=== PATIENT | male | born 1955 | race Caucasian/White ===

== ENCOUNTER 2017-05-03 21:59 | Inpatient (IN) | payer MEDICAID, SELFPAY ==
--- NOTE | 2017-05-03 22:12 | ED PDOC ---
Arrival/HPI - General Time Seen by Provider: 05/03/17 22:04 Historian: Patient - History of Present Illness Narrative History of Present Illness (Text): 05/03/17 22:05 Sisi Lee is a 61 year old male who presents to the Emergency department brought in by EMS complaining of sudden onset of mid-sternal chest pain 30 minutes prior to arrival. Patient was given Aspirin 324 mg en route by EMS. Patient denies any nausea, vomiting, diarrhea, urinary symptoms, back pain , neck pain, headache, dizziness, or any other complaints. Time/Duration: 1/2 hour Symptom Onset: Sudden Symptom Course: Unchanged Activities at Onset: Light Context: Home Past Medical History - Provider Review Nursing Documentation Reviewed: Yes Family/Social History - Physician Review Nursing Documentation Reviewed: Yes Family/Social History: Unknown Family HX Allergies/Home Meds Allergies/Adverse Reactions: Allergies No Known Allergies Allergy (Verified 05/03/17 22:20) Home Medications: Home Meds Medication Instructions Recorded Confirmed Atorvastatin [Lipitor] 10 mg PO DAILY 05/03/17 05/03/17 Meloxicam [Mobic] 15 mg PO DAILY 05/03/17 05/03/17 Sotalol HCl [Sotalol HCl] 40 mg PO DAILY 05/03/17 05/03/17 Review of Systems - Physician Review All systems were reviewed & negative as marked: Yes - Review of Systems Constitutional: Normal. absent: Fevers Eyes: Normal ENT: Normal Respiratory: absent: Cough Cardiovascular: Chest Pain Gastrointestinal: Normal. absent: Abdominal Pain, Diarrhea, Nausea, Vomiting Genitourinary Male: Normal. absent: Dysuria, Frequency, Hematuria, Urinary Output Changes Musculoskeletal: Normal. absent: Back Pain, Neck Pain Skin: Normal. absent: Rash Neurological: Normal. absent: Headache, Dizziness Hemo/Lymphatic: Normal Psychiatric: Normal Physical Exam Vital Signs Reviewed: Yes Vital Signs Pulse Resp BP Pulse Ox 05/04/17 00:32 65 16 118/67 100 05/04/17 00:05 64 16 104/66 100 05/03/17 23:30 59 L 16 115/76 100 05/03/17 23:15 59 L 16 114/68 100 05/03/17 23:00 51 L 16 116/68 100 05/03/17 22:45 52 L 16 122/43 L 99 05/03/17 22:29 51 L 16 122/73 99 05/03/17 22:15 48 L 16 111/71 99 05/03/17 22:00 54 L 16 103/65 99 Temperature: Afebrile Blood Pressure: Normal Pulse: Regular Respiratory Rate: Normal Appearance: Positive for: Well-Appearing, Non-Toxic, Comfortable Pain Distress: None Mental Status: Positive for: Alert and Oriented X 3 - Systems Exam Head: Present: Atraumatic, Normocephalic Pupils: Present: PERRL Extroacular Muscles: Present: EOMI Conjunctiva: Present: Normal Mouth: Present: Moist Mucous Membranes Neck: Present: Normal Range of Motion Respiratory/Chest: Present: Clear to Auscultation, Good Air Exchange. No: Respiratory Distress, Accessory Muscle Use Cardiovascular: Present: Regular Rate and Rhythm, Normal S1, S2. No: Murmurs Abdomen: Present: Normal Bowel Sounds. No: Tenderness, Distention, Peritoneal Signs Back: Present: Normal Inspection Upper Extremity: Present: Normal Inspection. No: Cyanosis, Edema Lower Extremity: Present: Normal Inspection. No: Edema Neurological: Present: GCS=15, CN II-XII Intact, Speech Normal Skin: Present: Warm, Dry, Normal Color. 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 Differential Diagnosis included but are not limited to: ACS Plan: -- EKG -- CXR -- Labs, cardiac enzymes -- Heparin -- Plavix -- Nitroglycerin -- Reassess and disposition Progress Notes: 05/03/17 22:05 Pt seen on arrival to ER. EKG reviewed, sinus bradycardia at 47 bpm[address] Non- specific ST/T wave changes. Questionable early inferior wall [place]. Sent to Dr. Do, cardiac cath air route traffic controller exploitation analyst, for further review 05/03/17 22:[address] Do, who reviewed EKG, states no STEMI on EKG. 05/03/17 22:16 Reviewed right-sided EKG, sinus bradycardia at 47 bpm. Questionable inferior wall [place]. No evidence of right ventricular infarct. 05/03/17 22:[address] Gray, habitat conservation planner, who is aware and agrees with plan. Pt will be admitted to the ICU for ACS under the hospitalist service. 05/03/17 23:05 PROCEDURE: VENIPUNCTURE Performed by the emergency provider. Consent: Informed consent, after discussion of the risks, benefits, and alternatives to the procedure, was obtained verbally from the patient prior to procedure. Timeout: A timeout to verify the correct patient, procedure, and site was performed immediately prior to the procedure. Indication: Lack of adequate venous access. Skin Preparation: Hand hygiene performed prior to venous catheter insertion. The area was cleansed and prepped with alcohol swabs. Location: Right EJ Technique: A 20 gauge catheter was placed into the RIGHT EJ. Successful placement: YES . Good blood return, flushes well. Post-procedure: Patient tolerated the procedure well with no immediate complications. 05/03/17 23:10 Reviewed radiology, CXR shows no acute processes. 05/04/17 00:31 pt improved hr and bp better will get ekg Repeat EKG reviewed, NSR at [address] segment elevations in leads 2, 3, and AVF. Code Heart called. 05/04/17 06:16 - Critical Care Critical Care Minutes: 30 minutes Narrative Critical Care (Text): Management of ACS - Lab Interpretations Lab Results: 05/03/17 22:08 05/03/17 22:08 Lab Results 05/03/17 22:08: Sodium 138, Potassium 5.1 H, Chloride 101, Carbon Dioxide 28, Anion Gap 14, BUN 18, Creatinine 1.1, Est GFR ( Amer) > 60, Est GFR (Non- Af Amer) > 60, Random Glucose 112 H, Calcium 9.5, Magnesium 1.9, Total Bilirubin 1.0, AST 44, ALT 53, Alkaline Phosphatase 64, Lactate Dehydrogenase 706 H, Total Creatine Kinase 97, Troponin I < 0.01, Total Protein 6.9, Albumin 4.2, Globulin 2.6, Albumin/Globulin Ratio 1.6 05/03/17 22:08: PT 11.4, INR 1.06, APTT 26.6 05/03/17 22:08: WBC 11.2 H, RBC 6.03, Hgb 18.3 H*, Hct 52.4 H, MCV 86.9, MCH 30.3, MCHC 34.9, RDW 13.8, Plt Count 215, MPV 9.8, Gran % 24.7 L, Lymph % (Auto ) 59.5 H, Dawson % (Auto) 10.7 H, Eos % (Auto) 4.4, Baso % (Auto) 0.7, Gran # 2.76 , Lymph # 6.6 H, Dawson # 1.2 H, Eos # 0.5, Baso # 0.08 05/03/17 22:06: POC Glucose (mg/dL) 119 H I have reviewed the lab results: Yes - RAD Interpretation Radiology Orders: 05/03/17 22:23 CHEST PORTABLE [RAD] Stat Polygraph Examiner: ED Physician - EKG Interpretation Interpreted by ED Physician: Yes Type: 12 lead EKG - Medication Orders Current Medication Orders: Acetaminophen (Tylenol 325mg Tab) 650 mg PO Q4 PRN PRN Reason: Fever >100.4 F Albuterol/Ipratropium (Duoneb 3 Mg/0.5 Mg (3 Ml) Ud) 3 ml IH Q2H PRN PRN Reason: Shortness of Breath Albuterol/Ipratropium (Duoneb 3 Mg/0.5 Mg (3 Ml) Ud) 3 ml IH [id number] ANILA Atorvastatin Calcium (Lipitor) 40 mg PO DIN ANILA Docusate Sodium (Colace) 100 mg PO BID PRN PRN Reason: Constipation Sodium Chloride (Sodium Chloride 0.9%) 1,000 mls @ 100 mls/hr IV .Q10H ANILA Stop: 05/04/17 21:59 Last Admin: 05/04/17 03:00 Dose: 100 mls/hr Ondansetron HCl (Zofran Inj) 4 mg IVP Q8H PRN PRN Reason: Nausea/Vomiting Discontinued Medications Atropine Sulfate (Atropine) Confirm Administered Dose 1 mg .ROUTE .STK-MED ONE Stop: 05/04/17 01:06 Last Admin: 05/04/17 01:31 Dose: 1 mg Comments: IV per Dr. Do. 0.5 mg @ 0131 and 0.5 mg @ 0132. Atropine Sulfate (Atropine) Confirm Administered Dose 1 mg .ROUTE .STK-MED ONE Stop: 05/04/17 01:37 Last Admin: 05/04/17 02:04 Dose: Clopidogrel Bisulfate (Plavix) 300 mg PO STAT STA Stop: 05/03/17 22:24 Last Admin: 05/03/17 22:38 Dose: 300 mg Fentanyl (Fentanyl) Confirm Administered Dose 100 mcg .ROUTE .STK-MED ONE Stop: 05/04/17 01:08 Last Admin: 05/04/17 01:15 Dose: 100 mcg Comments: IV. 50 mcg @ [address] Do. 50 mcg @ [address] Do Heparin Sodium (Porcine) (Heparin) 4,000 units IV ONCE ONE PRN Reason: Protocol Stop: 05/03/17 22:25 Last Admin: 05/03/17 23:09 Dose: 4,000 units Heparin Sodium (Porcine) (Heparin) Confirm Administered Dose 10,000 units .ROUTE .STK-MED ONE Stop: 05/04/17 01:06 Last Admin: 05/04/17 01:27 Dose: 2,000 units Comments: IV per Dr. Do Heparin Sodium/Dextrose (Heparin 25,000 Units/250ml In D5w) 25,000 units in 250 mls @ 8.437 mls/hr IV .Q24H ANILA; 12 UNITS/KG/HR PRN Reason: Protocol Last Admin: 05/03/17 23:10 Dose: 8.437 mls/hr Nitroglycerin/Dextrose (Nitroglycerin 50 Mg/250 Ml D5w) 50 mg in 250 mls @ 1.5 mls/hr IV .Q24H PRN; Protocol; 5 MCG/MIN PRN Reason: Systolic Blood Pressure Last Admin: 05/03/17 23:00 Dose: 1.5 mls/hr Nitroglycerin/Dextrose (Nitroglycerin 50 Mg/250 Ml D5w) Confirm Administered Dose 50 mg in 250 mls @ ud IV .STK-MED ONE Stop: 05/04/17 01:06 Last Admin: 05/04/17 02:06 Dose: Heparin Sodium (Porcine) (Heparin 1000 Units/500 Ml Ns) Confirm Administered Dose 1,500 mls @ ud IV .STK-MED ONE Stop: 05/04/17 01:07 Iodixanol (Visipaque 320 Mg/Ml 100 Ml) Confirm Administered Dose 100 ml IV .STK- MED ONE Stop: 05/04/17 01:06 Last Admin: 05/04/17 02:07 Dose: Iodixanol (Visipaque 320 Mg/Ml 200 Ml) Confirm Administered Dose 200 ml IV .STK- MED ONE Stop: 05/04/17 01:06 Last Admin: 05/04/17 01:18 Dose: 200 ml Comments: During cath Iohexol (Omnipaque 350mg/Ml 50 Ml) Confirm Administered Dose 50 ml .ROUTE .STK- MED ONE Stop: 05/04/17 01:06 Last Admin: 05/04/17 01:18 Dose: 50 ml Comments: During cath Lidocaine HCl (Lidocaine 2% 20ml Vial) Confirm Administered Dose 20 ml .ROUTE .STK-MED ONE Stop: 05/04/17 01:08 Last Admin: 05/04/17 01:18 Dose: 8 ml Comments: SC into right groin by Dr. Do Midazolam HCl (Versed Inj) Confirm Administered Dose 2 mg .ROUTE .STK-MED ONE Stop: 05/04/17 01:07 Last Admin: 05/04/17 01:15 Dose: 2 mg Comments: IV by Dr. Do Midazolam HCl (Versed Inj) Confirm Administered Dose 2 mg .ROUTE .STK-MED ONE Stop: 05/04/17 01:38 Last Admin: 05/04/17 01:37 Dose: 2 mg Comments: IV per Dr. Do Nitroglycerin (Nitrostat Sl Tab) 0.4 mg SL Q5M PRN PRN Reason: Chest Pain Stop: 05/04/17 01:41 Phenylephrine HCl (Phenylephrine Inj) Confirm Administered Dose 10 mg .ROUTE .STK-MED ONE Stop: 05/04/17 01:07 Last Admin: 05/04/17 02:07 Dose: - Scribe Statement The provider has reviewed the documentation as recorded by the Scribmarysol Phillips All medical record entries made by the Reneibmarysol were at my direction and personally dictated by me. I have reviewed the chart and agree that the record accurately reflects my personal performance of the history, physical exam, medical decision making, and the department course for this patient. I have also personally directed, reviewed, and agree with the discharge instructions and disposition. Disposition/Present on Arrival - Present on Arrival Any Indicators Present on Arrival: No - Disposition Have Diagnosis and Disposition been Completed?: Yes Diagnosis: Myocardial infarction of inferior wall Disposition: HOSPITALIZED Disposition Time: 00:30 Condition: CRITICAL
[2017-05-03] MEDS ORDERED: Nitroglycerin 50mg in D5W 50 MG/250 ML BOTTLE IV PRN (22:23)
[2017-05-03] MEDS ORDERED: Heparin 25,000units in D5W 25,000 UNITS/250 ML BAG IV SCH (22:30)
[2017-05-03 22:32] LABS: BASO # 0.08 K/mm3 (0.0-2.0); BASO % 0.7 % (0.0-3.0); EOS # 0.5 (0.0-0.7); EOS % 4.4 % (1.5-5.0); GRAN # 2.76 (1.4-6.5); GRAN % 24.7 % (50.0-68.0); HEMATOCRIT 52.4 % (42.0-52.0); LYMPH # 6.6 (1.2-3.4); LYMPH % 59.5 % (22.0-35.0); MEAN CELL VOLUME 86.9 fl (80.0-105.0); MEAN CORPUSCULAR HEMOGLOBIN 30.3 pg (25.0-35.0); MEAN CORPUSCULAR HGB CONC 34.9 g/dl (31.0-37.0); MEAN PLATELET VOLUME 9.8 fl (7.0-11.0); MONO # 1.2 (0.1-0.6); MONO % 10.7 % (1.0-6.0); RED CELL DISTRIBUTION WIDTH 13.8 % (11.5-14.5); WHITE BLOOD COUNT 11.2 10^3/ul (4.5-11.0)
[2017-05-03 22:43] LABS: INR 1.06 (0.93-1.08); PARTIAL THROMBOPLASTIN TIME 26.6 Seconds (23.7-30.8)
[2017-05-03 22:44] LABS: ALB/GLOB RATIO 1.6 (1.1-1.8); ALKALINE PHOSPHATASE 64 U/L (38-126); ALT/SGPT 53 U/L (7-56); AST/SGOT 44 U/L (17-59); BLOOD UREA NITROGEN 18 mg/dL (7-21); CALCIUM 9.5 mg/dL (8.4-10.5); CARBON DIOXIDE 28 mmol/L (21-33); CHLORIDE 101 mmol/L (98-107); GFR AFRICAN-AMERICAN > 60; GLUCOSE,RANDOM 112 mg/dL (70-110); MAGNESIUM 1.9 mg/dL (1.7-2.2); SODIUM 138 mmol/L (132-148); TOTAL PROTEIN 6.9 g/dL (5.8-8.3)
[2017-05-03 22:45] LABS: POTASSIUM 5.1 mmol/L (3.6-5.0)
[2017-05-03 22:55] LABS: TROPONIN I < 0.01 ng/mL
--- NOTE | 2017-05-04 00:56 | CP.PCM.PN ---
Subjective - Date & Time of Evaluation Date of Evaluation: 05/04/17 Time of Evaluation: 00:56 - Subjective Subjective: Responded to 'Code heart' announcement promptly. Medical record was reviewed. Stayed with patient and accompanied him to pathology laboratory technologist, stayed in pathology laboratory technologist until PTCA of proximal circumflex and 1 st OM completed. TIME SPENT 65 Minutes. Objective - Vital Signs/Intake and Output Vital Signs (last 24 hours): Temp Pulse Resp BP Pulse Ox 65 16 118/67 100 05/04/17 00:32 05/04/17 00:32 05/04/17 00:32 05/04/17 00:32 - Medications Medications: Current Medications Heparin Sodium/Dextrose (Heparin 25,000 Units/250ml In D5w) 25,000 units in 250 mls @ 8.437 mls/hr IV .Q24H ANILA; 12 UNITS/KG/HR PRN Reason: Protocol Last Admin: 05/03/17 23:10 Dose: 8.437 mls/hr Nitroglycerin/Dextrose (Nitroglycerin 50 Mg/250 Ml D5w) 50 mg in 250 mls @ 1.5 mls/hr IV .Q24H PRN; Protocol; 5 MCG/MIN PRN Reason: Systolic Blood Pressure Last Admin: 05/03/17 23:00 Dose: 1.5 mls/hr - Labs Labs: PT 11.4 Seconds (9.9-11.8) 05/03/17 22:08 INR 1.06 (0.93-1.08) 05/03/17 22:08 APTT 26.6 Seconds (23.7-30.8) 05/03/17 22:08
[2017-05-04] MEDS ORDERED: Nitroglycerin 50mg in D5W 0 MG/0 ML BOTTLE IV ONE (01:05)
[2017-05-04] MEDS ORDERED: Iodixanol 320 MG/ML 100 ML BOTTLE IV ONE (01:05)
[2017-05-04] MEDS ORDERED: Iohexol 350mgl/ml 50 ML ONE (01:05)
[2017-05-04] MEDS ORDERED: Iodixanol 320 MG/ML 200 ML BOTTLE IV ONE (01:05)
[2017-05-04] MEDS ORDERED: Phenylephrine 10 mg/ml Inj ONE (01:06)
[2017-05-04] MEDS ORDERED: Midazolam 2 MG/2 ML VIAL ONE ×2 (01:06→01:37)
[2017-05-04] MEDS ORDERED: Lidocaine 2% Inj (20ml) ONE (01:07)
[2017-05-04] MEDS ORDERED: Sodium Chloride 0.9% 1,000 ML IV SCH (02:00)
--- NOTE | 2017-05-04 02:08 | CP.PCM.HP ---
<Madgy Alvarado - Last Filed: 05/04/17 01:52> History of Present Illness - History of Present Illness History of Present Illness: ICU H&P for Dr. Gray CC: Midsternal chest pain x 3 hours HPI: This is a 61 yo Sami-speaking M with PMH HTN, AFib, HLD, and unspecified lung disorder 2/2 active tobacco use (1ppd > 30yrs, currently ~1/2 ppd for 6 months) who [place] [facility] of midsternal sharp chest pain persisting for > 3 hours prior to arrival. Through crop duster, patient reports some shortness of breath, but does not describe as significantly off his baseline. Also reports nausea without emesis, 2x episodes of diarrhea today, chills, and general feeling of malaise. Denies syncope/near-syncope, emesis, hematemesis, cough, focal weakness, dysuria, or fevers. Denies any similar chest pain in the past. Does not follow a bakery decorator. Reports family hx of stroke (both parents), but denies any FHx of RI. Reports compliant with home medications. Prior to episode, only baseline sx were some shortness of breath with exertion, and baseline shortness of breath for which he used a rescue inhaler, a nebulizer, and Spriva. All other ROS in 12-point system review were negative. In the ED, initial EKG was notable for mild ST-elevation in leads II, III, and aVF, and ST-depressions in leads I and aVL. Initial trop was negative. He was started on a heparin drip and nitro drip, but reported minimal alleviation of symptoms. Repeat EKG was notable for acutely worsened elevations and depressions in previously mentioned leads, and in consultation with Cardio, it was determined that the patient was experiencing a STEMI (CODE HEART called at 0032, 05/04/17) requiring emergent catheterization. Cath team was called in and patient was transported to engineering lab technician by team (please see Code Heart Note for further details) in hemodynamically stable condition. Patient underwent cardiac cath, with stents being placed in the proximal left circumflex and obtuse marginal branch of the left circumflex. Patient has now been transferred to the ICU for close monitoring s/p emergent cardiac cath. PMH: As above PSH: Denies FHx: stroke in both parents, denies any hx of RI SHx: Lives with son, active tobacco user (last used today, currently ~1/2 ppd, 1ppd for > 30 yrs), social EtOH (denies binging), denies illicits/IVDA PMD: Dr. Poon in [place] Present on Admission - Present on Admission Any Indicators Present on Admission: No History of DVT/PE: No History of Uncontrolled Diabetes: No Urinary Catheter: No Review of Systems - Review of Systems All systems: reviewed and no additional remarkable complaints except (as per HPI ) Past Patient History - Infectious Disease Hx of Infectious Diseases: None - Past Social History Smoking Status: Current Some Days Smoker - CARDIAC Hx Cardia Arrhythmia: Yes - RENAL Hx Kidney Stones: Yes - PSYCHIATRIC Hx Substance Use: No - SURGICAL HISTORY Other/Comment: Lithrotripsy Meds Allergies/Adverse Reactions: Allergies Allergy/AdvReac Type Severity Reaction Status Date / Time No Known Allergies Allergy Verified 05/03/17 22:20 Physical Exam - Constitutional Appears: Non-toxic Additional comments: Malaise, generally uncomfortably appearing but never acutely distressed - Head Exam Head Exam: ATRAUMATIC, NORMAL INSPECTION, NORMOCEPHALIC - Eye Exam Eye Exam: EOMI, Normal appearance. absent: Conjunctival injection, Scleral icterus Pupil Exam: absent: Irregular, Unequal - ENT Exam ENT Exam: Mucous Membranes Moist - Neck Exam Neck exam: Positive for: Full Rom - Respiratory Exam Respiratory Exam: Decreased Breath Sounds (mildly decreased breath sounds in all baker), Prolonged Expiratory Phase, Wheezes (end-expiratory wheezes heard in all auscultated baker), NORMAL BREATHING PATTERN. absent: Accessory Muscle Use, Chest Wall Tenderness, Clear to Auscultation Bilateral, Rales, Rhonchi, Stridor - Cardiovascular Exam Cardiovascular Exam: REGULAR RHYTHM (regulr rhythm, intermittently bradycardic on bedside monitor), RRR, +S1, +S2. absent: Bradycardia, Tachycardia, Irregular Rhythm, JVD, +S4 - GI/Abdominal Exam GI & Abdominal Exam: Normal Bowel Sounds, Soft. absent: Diminished Bowel Sounds , Distended (obese but not distended), Firm, Guarding, Hyperactive Bowel Sounds , Hypoactive Bowel Sounds, Rigid, Tenderness - Extremities Exam Extremities exam: Positive for: normal inspection, pedal pulses present. Negative for: calf tenderness, pedal edema, tenderness Additional comments: +2 radials and dorsalis pedis pulses bilaterally - Back Exam Back exam: absent: CVA tenderness (L), CVA tenderness (R) - Neurological Exam Additional comments: awake and alert, following all commands, moving all extremities spontaneously - Psychiatric Exam Psychiatric exam: Anxious, Normal Affect - Skin Skin Exam: Dry, Intact, Normal Color, Warm Results - Vital Signs Recent Vital Signs: Last Vital Signs Temp Pulse 65 05/04/17 00:32 Resp 16 05/04/17 00:32 BP 118/67 05/04/17 00:32 Pulse Ox 100 05/04/17 00:32 - Labs Result Diagrams: 05/03/17 22:08 05/03/17 22:08 Assessment & Plan - Assessment and Plan (Free Text) Assessment: This is a 61 yo Sami-speaking M with PMH HTN, AFib, HLD, and unspecified lung disorder 2/2 active tobacco use (1ppd > 30yrs, currently ~1/2 ppd for 6 months) who presented to [facility] [place] complaint of midsternal sharp chest pain persisting for > 3 hours prior to arrival, having a STEMI, s/p emergent cardiac cath with 2 stents placed. Plan: Neuro: -currently sedated post-cath, but otherwise awake, alert, and oriented -maintain normothermia -Neuro checks Pulm: -Satting well on room air, currently on nasal canula -Unclear lung disease per patient's hx, but given home medications and smoking hx, likely COPD vs emphysema -Nebs q4 abrahan and q2 prn given current wheezing and generally decreased breath sounds -In setting of suspected COPD, maintain SaO2 > 90%, avoid persistently 100% SaO2 to prevent depressing the respirtory drive -Reviewed tobacco cessation with patient, highlighted importance of quitting in the setting of active cardiac disease -CXR in ED negative for acute infiltrate, does not appear to be hyperinflated; repeat CXR in AM, f/u Cardio: -s/p STEMI, inferior wall RI with ST-elevations in leads II, III, aVF -serial EKGs ordered post-cath, f/u -As per Cardio, 2x stents placed, in proximal LCX and obtuse marginal branch of LCX -Cardio (Dr. Do) consulted, appreciate all recs -Loaded with Plavix and ASA prior to cath, to continue on ASA/Plavix and Lipitor 40mg as per Cardio -Given bradycardia to mid-40's in the ED, avoid Beta-blockers for now as per Cardio, will reassess tomorrow -Trops q8 x3 ordered, f/u -Continue heparin drip, nitro drip d/c'ed as per Cardio GI: -NPO -Zofran prn for Nausea -When cleared for diet, heart-healthy low fat diet recommended Renal: -Strict I's&O's s/p cardiac cath -Cr 1.1 on admission, Monitor for possible increases, possible YAMILE given cath with IV dye -Monitor and replete electrolytes as needed -Maintain euglycemia (BG 140-180) and euvolemia Heme: -Hgb elevated at 18.3, possibly elevated 2/2 hypoxia from chronic tobacco abuse vs hemoconcentration from nausea/poor appetite -monitor closely, watch for signs of bleeding from cath site s/p cath -heparin drip s/p STEMI, covers for DVT ppx ID: -mild leukocytosis of 11.2, likely 2/2 stress rxn -afebrile -no indication for antibiotics at this time Dispo: S/p cardiac cath and x2 stenting, now ICU for close observation and f/u labs FEN: NPO Access: Peripheral IVs Consults: Cardio Ppx: Heparin drip covers for DVT Patient seen, reviewed, and discussed with attending, Dr. Gray Decision To Admit - Pt Status Changed To: Hospital Disposition Of: Inpatient Admission - Admit Certification Admit to Inpatient:: After my assessment, the patient will require hospitalization for at least two midnights. This is because of the severity of symptoms shown, intensity of services needed, and/or the medical risk in this patient being treated as an outpatient. - . Bed Request Type: Critical Care <Marina RINCON,Hiren - Last Filed: 05/06/17 09:24> Results - Vital Signs Recent Vital Signs: Last Vital Signs Temp 98.7 F 05/06/17 06:31 Pulse 69 05/06/17 06:00 Resp 20 05/06/17 06:00 BP 107/59 L 05/06/17 06:00 Pulse Ox 98 05/06/17 06:00 - Labs Result Diagrams: 05/06/17 07:33 05/06/17 07:33 Labs: Laboratory Results - last 24 hr 05/05/17 05/05/17 05/06/17 10:47 11:24 07:33 WBC 9.5 RBC 5.57 Hgb 16.7 Hct 48.4 MCV 86.9 MCH 30.0 MCHC 34.5 RDW 14.0 Plt Count 133 MPV 9.5 Gran % 45.0 L Lymph % (Auto) 39.7 H Cory[place] % (Auto) 11.5 H Eos % (Auto) 3.4 Baso % (Auto) 0.4 Gran # 4.25 Lymph # 3.8 H Coryell # 1.1 H Eos # 0.3 Baso # 0.04 Sodium Potassium Chloride Carbon Dioxide Anion Gap BUN Creatinine Est GFR ( Amer) Est GFR (Non-Af Amer) Random Glucose Calcium Total Bilirubin AST ALT Alkaline Phosphatase Lactate Dehydrogenase 1593 H Total Creatine Kinase 658 H CK-MB (CK-2) 20.7 H CK-MB (CK-2) % 3.1 H Troponin I 29.60 H* D Total Protein Albumin Globulin Albumin/Globulin Ratio Hepatitis A IgM Ab Negative Hep Bs Antigen Negative Hep B Core IgM Ab Negative Hepatitis C Antibody Negative 05/06/17 07:33 WBC RBC Hgb Hct MCV MCH MCHC RDW Plt Count MPV Gran % Lymph % (Auto) Coryell % (Auto) Eos % (Auto) Baso % (Auto) Gran # Lymph # Coryell # Eos # Baso # Sodium 138 Potassium 4.1 Chloride 104 Carbon Dioxide 27 Anion Gap 11 BUN 15 Creatinine 1.0 Est GFR ( Amer) > 60 Est GFR (Non-Af Amer) > 60 Random Glucose 101 Calcium 9.4 Total Bilirubin 1.4 H AST 93 H D ALT 52 Alkaline Phosphatase 71 Lactate Dehydrogenase Total Creatine Kinase CK-MB (CK-2) CK-MB (CK-2) % Troponin I Total Protein 7.0 Albumin 4.1 Globulin 2.8 Albumin/Globulin Ratio 1.5 Hepatitis A IgM Ab Hep Bs Antigen Hep B Core IgM Ab Hepatitis C Antibody Attending/Attestation - Attestation I have personally seen and examined this patient.: Yes I have fully participated in the care of the patient.: Yes I have reviewed all pertinent clinical information: Yes Notes (Text): 05/06/17 09:20 I agree with the above H&P completed by the resident physician with the following changes and/or additions: The patient is a 61 year old Brazilian man with a history HTN, paroxysmal atrial fibrillation, HLD and chronic tobacco use, who p/w with chest pain and was found to have an inferolateral STEMI. Consequently, he underwent emergent cardiac catheterization with placement of 2 stents. He will be monitored post- cath in the ICU.
[2017-05-04] MEDS ORDERED: Albuterol-Ipratrop 3 mg / 0.5 (3 ml) UD IH PRN (02:19)
[2017-05-04] MEDS: Albuterol-Ipratrop 3 mg / 0.5 (3 ml) UD IH SCH ×2 (03:30→06:58)
[2017-05-04 05:24] LABS: MEAN CORPUSCULAR HEMOGLOBIN 29.6 pg (25.0-35.0); MEAN CORPUSCULAR HGB CONC 33.6 g/dl (31.0-37.0); WHITE BLOOD COUNT 8.9 10^3/ul (4.5-11.0)
[2017-05-04 05:25] LABS: BASO # 0.02 K/mm3 (0.0-2.0); BASO % 0.2 % (0.0-3.0); EOS # 0.1 (0.0-0.7); GRAN # 5.55 (1.4-6.5); GRAN % 62.3 % (50.0-68.0); LYMPH # 2.5 (1.2-3.4); LYMPH % 27.9 % (22.0-35.0); MEAN PLATELET VOLUME 9.3 fl (7.0-11.0); MONO # 0.8 (0.1-0.6); MONO % 8.6 % (1.0-6.0)
[2017-05-04 05:35] LABS: ALB/GLOB RATIO 1.4 (1.1-1.8); ALKALINE PHOSPHATASE 65 U/L (38-126); ALT/SGPT 88 U/L (7-56); AST/SGOT 387 U/L (17-59); BILIRUBIN,TOTAL 0.7 mg/dL (0.2-1.3); BLOOD UREA NITROGEN 16 mg/dL (7-21); CALCIUM 8.5 mg/dL (8.4-10.5); CARBON DIOXIDE 25 mmol/L (21-33); CHLORIDE 106 mmol/L (98-107); GFR AFRICAN-AMERICAN > 60; GLUCOSE,RANDOM 103 mg/dL (70-110); MAGNESIUM 1.7 mg/dL (1.7-2.2); PHOSPHOROUS 2.7 mg/dL (2.5-4.5); POTASSIUM 4.6 mmol/L (3.6-5.0); SODIUM 138 mmol/L (132-148)
--- NOTE | 2017-05-04 06:15 | CON ---
DATE: 05/04/2017 HISTORY OF PRESENT ILLNESS: This is a 61-year-old man with a history of tobacco use and hyperlipidemia who presented to the emergency room with retrosternal chest discomfort. His echocardiogram was nondiagnostic; however, repeat electrocardiogram [address] showed marked ST elevations in the inferolateral leads. Emergency catheterization was recommended. The patient speaks little Kinyarwanda and most of history is obtained via the family. He does have a history of hyperlipidemia and he has been on sotalol for unspecified reasons. He does smoke. He is reportedly not hypertensive or diabetic. PAST MEDICAL HISTORY: As noted. FAMILY HISTORY: Uncertain. SOCIAL HISTORY: . Lives with his . He does smoke, He does not drink. REVIEW OF SYSTEMS: A 10-point review of systems was relatively unremarkable. PHYSICAL EXAMINATION: GENERAL: He is an anxious-appearing middle age man. VITAL SIGNS: His blood pressure was 118/70, pulse is 60, respiration rate is 14, he is afebrile. HEENT: Normocephalic and atraumatic. NECK: Supple. No JVD. CHEST: Few scattered rhonchi. HEART: PMI in normal position. No pathological gallops noted. ABDOMEN: Soft and nontender. Normoactive bowel sounds. EXTREMITIES: No clubbing, cyanosis, or edema. SKIN: Warm and dry. PSYCHIATRIC: Normal mood and affect. NEUROLOGIC: No gross motor or sensory deficits appreciable. DIAGNOSTIC DATA: Initial troponin is 0. CK is 97, potassium is 5.1, BUN and creatinine are 18 and 1.2, glucose 112, hemoglobin and hematocrit 18.3 and 52.4 with a white count of 11.2, platelet count 215,000. Initial electrocardiogram reveals sinus bradycardia with prominent T waves. Repeat electrocardiogram shows evidence of ST elevations in the inferolateral leads as well as reciprocal depressions. Chest x-ray reveals a normal cardiac silhouette with clear lung baker. IMPRESSION: Acute inferior wall myocardial infarction. RECOMMENDATIONS: The patient was brought to the emergency cardiac catheterization lab and under cardiac catheterization and possible PCI of circumflex artery is performed. Risks and benefits have been discussed with his family and they are agreeable to proceed. Aspirin and Plavix therapy have been initiated. Further recommendations will be based on the results of catheterization. Carlos Do MD [facility] # [id number] NINO
--- NOTE | 2017-05-04 08:16 | RAD ---
HISTORY: chest pain COMPARISON: No prior. TECHNIQUE: Chest, one view. FINDINGS: Numerous external wires and leads obscure evaluation of the underlying parenchyma. LUNGS: Mild pulmonary venous congestion. No focal consolidation. Please note that chest x-ray has limited sensitivity for the detection of pulmonary masses. PLEURA: No significant pleural effusion identified. No definite pneumothorax . CARDIOVASCULAR: Heart size appears top normal. OSSEOUS STRUCTURES: Mild degenerative changes. VISUALIZED UPPER ABDOMEN: Unremarkable. OTHER FINDINGS: None. IMPRESSION: Mild pulmonary venous congestion.
--- NOTE | 2017-05-04 09:19 | RAD ---
HISTORY: f/u COMPARISON: Chest x-ray performed 05/03/17 TECHNIQUE: Chest, one view. FINDINGS: Examination limited by habitus. LUNGS: Mild pulmonary venous congestion. PLEURA: No significant pleural effusion identified. No definite pneumothorax . CARDIOVASCULAR: Heart size appears top normal. OSSEOUS STRUCTURES: Mild degenerative changes. VISUALIZED UPPER ABDOMEN: Unremarkable. OTHER FINDINGS: None. IMPRESSION: Mild pulmonary venous congestion.
[2017-05-04] MEDS: Sodium Chloride 0.9% 1,000 ML IV SCH (11:41)
--- NOTE | 2017-05-04 14:23 | CARDCATH ---
PROCEDURE DATE: 05/04/2017 HISTORY OF PRESENT ILLNESS: This is a 61-year-old man with a history of hyperlipidemia who presents to the emergency room with chest pain. Initial EKG was nondiagnostic; however, repeat EKG several hours later showed evidence of inferolateral ST elevation. Emergency catheterization was advised. INDICATION: Acute inferior myocardial infarction. PROCEDURES: 1. Selective left and right coronary angiography. 2. Left ventriculography. 3. Percutaneous coronary intervention of proximal left circumflex and second obtuse marginal branch with drug-eluting stents. 4. Right femoral arteriography. 5. Angio-Seal deployment. FINDINGS: Hemodynamics: The aortic pressure was 100/60 with left ventricular pressure of 100/30. CORONARY ANATOMY: 1. The left mainstem was normal. 2. The left anterior ascending artery and its branches had minimal disease. 3. The left circumflex artery was occluded proximally. 4. The right coronary artery was nondominant and diffusely diseased. There was a long segment of severe stenosis at the take off of an acute marginal branch. LEFT VENTRICULOGRAPHY: A hand injection was performed in left ventricle revealing relatively normal wall motion with an ejection fraction of 55%. CURRENT INTERVENTION: The patient had been given heparin and started on heparin infusion in the emergency room. ACT was 203 seconds. An additional 2000 units of heparin was administered. A 3.5 EBU-guide catheter was utilized to cannulate the left coronary artery. The lesion in the left circumflex was successfully crossed with the use of a [place] wire. With crossing of the wire, there was evidence of distal flow into the vessel. The lesion was then treated with inflation of a 2.5 x 12 mm balloon. Following this, the balloon was removed and a 3.5 x 15 mm Resolute drug-eluting stent was deployed to 12 [place]. There was 0% stenosis at the site of intervention. Following this, a second obtuse marginal branch had evidence of 70% stenosis in its proximal segment. The wire was withdrawn and advanced into the second obtuse marginal branch and the lesion was treated with primary stenting using a 2.5 x 12 mm Resolute stent. The distal obtuse marginal branches in the PDA had evidence of mild diffuse disease. A SANJAY grade 3 flow was present at the end of the procedure. RIGHT FEMORAL ARTERIOGRAPHY: A right femoral arteriogram was performed in the BONNER projection. This revealed no significant disease with appropriate level of arterial punch. The puncture site was then closed with deployment of an Angio-Seal device. CONCLUSION: 1. Acute myocardial infarction secondary to proximal occlusion of a large dominant left circumflex artery. 2. Diffusely diseased nondominant RCA. 3. Normal LV systolic function. 4. Successful PCI of left circumflex and obtuse marginal branches with drug-eluting stents as described above. RECOMMENDATIONS: The patient will be observed in the CCU and serial enzymes and electrocardiograms will be obtained. Aspirin and Plavix will be continued as well as statin therapy. A beta-phoenix therapy will be initiated once his blood pressure is clearly stable. Risk factor control is advised. Carlos Do MD
--- NOTE | 2017-05-04 14:31 | PN ---
DATE: 05/04/2017 SUBJECTIVE: The patient is resting in bed with family at bedside. States that he has no chest pain. No complaints of shortness of breath, cough, wheezing, chest congestion. No abdominal pain and no diarrhea. He does state that he has some lower extremity tingling and numbness. This is a problem that he has had even prior to coming to the hospital. He has no headache, no dizziness, no blurred vision. PHYSICAL EXAMINATION: VITAL SIGNS: Note that his temperature is 97.6, pulse is 67, respirations are 22, and blood pressure is 111/66. SKIN: Warm and dry. HEENT: Head; atraumatic and normocephalic. Eyes; reactive to light. Ear, nose and throat seem to be within normal limits. NECK: Supple. No JVD. No thyroid enlargement. No lymph nodes. HEART: Regular rate and rhythm. Normal S1 and S2. LUNGS: Reveal good breath sounds bilaterally. ABDOMEN: Soft, nontender. Normal bowel sounds. GENITALIA AND RECTAL: Deferred. MUSCULOSKELETAL: No joint deformities. EXTREMITIES: Reveal no significant edema. NEUROLOGIC: He seems to be grossly intact. LABORATORY DATA: His white count is 8.9, hemoglobin is 16.8 with hematocrit of 50.0 and platelets of 127,000. Sodium is 138, potassium 4.6, chloride is 106, CO2 of 25 with a BUN of 16, creatinine of 1.0 and a glucose of 103. Note that the patient's troponins were 37.2. Chest x-ray reveals that there is mild pulmonary congestion. IMPRESSION: This patient had acute myocardial infarction with "STEMI." He has a coronary artery disease and several stents were placed. The patient has mild pulmonary edema and has a history of hyperlipidemia, hypertension, atrial fibrillation and chronic obstructive pulmonary disease. PLAN: We will continue to observe closely in the intensive care unit. The patient is on DuoNeb as a bronchodilator. He is getting Lipitor and getting IV fluids. He has also been put on Colace p.r.n. He is being followed closely by cardiology and the primary care doctor, and we will continue to treat aggressively along with the other physicians. Hemant Camilo MD [facility] # [id number]
[2017-05-04] MEDS ORDERED: Pantoprazole 40 mg EC Tab PO STA (15:04)
[2017-05-05] MEDS: Sodium Chloride 0.9% 1,000 ML IV SCH (01:00)
[2017-05-05 05:54] LABS: BASO # 0.03 K/mm3 (0.0-2.0); BASO % 0.3 % (0.0-3.0); EOS # 0.2 (0.0-0.7); GRAN # 4.6 (1.4-6.5); GRAN % 48.7 % (50.0-68.0); HEMATOCRIT 45.5 % (42.0-52.0); LYMPH # 3.5 (1.2-3.4); LYMPH % 36.7 % (22.0-35.0); MEAN CELL VOLUME 87.3 fl (80.0-105.0); MEAN CORPUSCULAR HEMOGLOBIN 29.4 pg (25.0-35.0); MEAN CORPUSCULAR HGB CONC 33.6 g/dl (31.0-37.0); MEAN PLATELET VOLUME 9.4 fl (7.0-11.0); MONO # 1.2 (0.1-0.6); MONO % 12.3 % (1.0-6.0); RED CELL DISTRIBUTION WIDTH 14.2 % (11.5-14.5); WHITE BLOOD COUNT 9.4 10^3/ul (4.5-11.0)
[2017-05-05 06:01] LABS: ALB/GLOB RATIO 1.3 (1.1-1.8); ALKALINE PHOSPHATASE 60 U/L (38-126); ALT/SGPT 71 U/L (7-56); AST/SGOT 176 U/L (17-59); BILIRUBIN,TOTAL 1.1 mg/dL (0.2-1.3); BLOOD UREA NITROGEN 11 mg/dL (7-21); CALCIUM 8.6 mg/dL (8.4-10.5); CARBON DIOXIDE 28 mmol/L (21-33); CHLORIDE 108 mmol/L (98-107); GFR AFRICAN-AMERICAN > 60; GLUCOSE,RANDOM 102 mg/dL (70-110); MAGNESIUM 1.7 mg/dL (1.7-2.2); PHOSPHOROUS 2.8 mg/dL (2.5-4.5); POTASSIUM 4.2 mmol/L (3.6-5.0); SODIUM 140 mmol/L (132-148)
[2017-05-05] MEDS: Pantoprazole 40 mg EC Tab PO SCH (06:17)
--- NOTE | 2017-05-05 07:19 | CARD ---
APPROVED REPORT EKG Measurement Heart [id number] [place] 180P52 [id number] <Conclusion> Normal sinus rhythm Left ventricular hypertrophy with repolarization abnormality Inferior-posterior infarct, possibly acute ACUTE VT Consider right ventricular involvement in acute inferior infarct Abnormal ECG
--- NOTE | 2017-05-05 07:19 | CARD ---
APPROVED REPORT EKG Measurement Heart [id number] MA 160P63 [id number] <Conclusion> Normal sinus rhythm Left axis deviation Left ventricular hypertrophy with repolarization abnormality Inferior-posterior infarct, age undetermined Abnormal ECG
--- NOTE | 2017-05-05 07:20 | CARD ---
APPROVED REPORT EKG Measurement Heart [id number] [place] 178P52 [id number] <Conclusion> Normal sinus rhythm Left ventricular hypertrophy with repolarization abnormality Possible Lateral infarct, age undetermined Inferior-posterior infarct, possibly acute ACUTE CO Consider right ventricular involvement in acute inferior infarct Abnormal ECG
--- NOTE | 2017-05-05 07:22 | CARD ---
APPROVED REPORT EKG Measurement Heart [id number] SD 166P61 [id number] <Conclusion> Marked sinus bradycardia Left ventricular hypertrophy with repolarization abnormality ST-T changes suggestive of lateral ischemia Abnormal ECG
--- NOTE | 2017-05-05 07:22 | CARD ---
APPROVED REPORT EKG Measurement Heart [id number] [place] 166P52 [id number] <Conclusion> Sinus bradycardia Left ventricular hypertrophy with repolarization abnormality Nonspecific ST abnormality Abnormal ECG
--- NOTE | 2017-05-05 08:16 | CP.PCM.PN ---
Subjective - Date & Time of Evaluation Date of Evaluation: 05/05/17 Time of Evaluation: 08:12 - Subjective Subjective: Patient seen and examined. Reports no major complaints. Patient s/p cardiac cath yesterday, doing well. Objective - Vital Signs/Intake and Output Vital Signs (last 24 hours): Temp Pulse Resp BP Pulse Ox 98.7 F 60 21 101/46 L 96 05/05/17 01:00 05/05/17 06:30 05/05/17 06:30 05/05/17 06:00 05/05/17 06:30 Intake and Output: 05/05/17 05/05/17 06:59 18:59 Intake Total 900 Output Total 950 Balance -50 - Medications Medications: Current Medications Acetaminophen (Tylenol 325mg Tab) 650 mg PO Q4 PRN PRN Reason: Fever >100.4 F Albuterol/Ipratropium (Duoneb 3 Mg/0.5 Mg (3 Ml) Ud) 3 ml IH Q2H PRN PRN Reason: Shortness of Breath Last Admin: 05/04/17 15:34 Dose: 3 ml Albuterol/Ipratropium (Duoneb 3 Mg/0.5 Mg (3 Ml) Ud) 3 ml IH [id number] [facility] Last Admin: 05/04/17 06:58 Dose: Not Given Aspirin (Ecotrin) 81 mg PO DAILY [facility] Last Admin: 05/04/17 11:41 Dose: 81 mg Atorvastatin Calcium (Lipitor) 40 mg PO DIN [facility] Last Admin: 05/04/17 17:37 Dose: Not Given Clopidogrel Bisulfate (Plavix) 75 mg PO DAILY [facility] Last Admin: 05/04/17 11:41 Dose: 75 mg Docusate Sodium (Colace) 100 mg PO BID PRN PRN Reason: Constipation Ondansetron HCl (Zofran Inj) 4 mg IVP Q8H PRN PRN Reason: Nausea/Vomiting Pantoprazole Sodium (Protonix Ec Tab) 40 mg PO 0600 [facility] Last Admin: 05/05/17 06:17 Dose: 40 mg - Labs Labs: 05/05/17 05:30 05/05/17 05:30 PT 11.4 Seconds (9.9-11.8) 05/03/17 22:08 INR 1.06 (0.93-1.08) 05/03/17 22:08 APTT 26.6 Seconds (23.7-30.8) 05/03/17 22:08 - Constitutional Appears: Well, Non-toxic - Head Exam Head Exam: ATRAUMATIC - Neck Exam Neck Exam: Full ROM - Respiratory Exam Respiratory Exam: Clear to Ausculation Bilateral, NORMAL BREATHING PATTERN - Cardiovascular Exam Cardiovascular Exam: RRR, +S1, +S2 - GI/Abdominal Exam GI & Abdominal Exam: Soft, Normal Bowel Sounds - Extremities Exam Extremities Exam: Normal Inspection Assessment and Plan - Assessment and Plan (Free Text) Assessment: 61yo male with PMhx of Afib, HTN, HLD, active smoker a/w STEMI s/p cardiac cath with stent. STEMI CAD HTN HLD Afib Hx Smoking - currently afebrile, HD stable, comfortable, in NAD, denies any major complaints - Troponin downtrending, sp cardiac cath, no CP Recommend: - ASA, Plavix, Statin, BB - follow up ECHO - DASH Diet - Smoking avoidance - BP Control - Duonebs PRN - Nicotine patch - DC IVF - outpatient pulm follow up - follow up cardiology - transfer to telemetry
[2017-05-05] MEDS ORDERED: Magnesium Sulfate 1 gm in D5W 1 GM/100 ML BAG IVPB ONE (09:04)
--- NOTE | 2017-05-05 10:45 | CP.PCM.PN ---
<ARTEMIOPEGGYCHARLOTTE - Last Filed: 05/05/17 10:42> Subjective - Date & Time of Evaluation Date of Evaluation: 05/05/17 Time of Evaluation: 07:30 - Subjective Subjective: Delia Birmingham DO PGY1 - Internal Medicine Progress Note Patient seen and examined at bedside in the ICU. No acute events reported overnight. He now denies any CP, SOB, arm pain, neck pain, N/V, F/C, diaphoresis. He is requesting to be transferred out of the ICU. Objective - Vital Signs/Intake and Output Vital Signs (last 24 hours): Temp Pulse Resp BP Pulse Ox 98.7 F 65 21 103/57 L 97 05/05/17 01:00 05/05/17 10:00 05/05/17 10:00 05/05/17 08:00 05/05/17 10:00 Intake and Output: 05/05/17 05/05/17 06:59 18:59 Intake Total 900 Output Total 950 Balance -50 - Medications Medications: Current Medications Acetaminophen (Tylenol 325mg Tab) 650 mg PO Q4 PRN PRN Reason: Fever >100.4 F Albuterol/Ipratropium (Duoneb 3 Mg/0.5 Mg (3 Ml) Ud) 3 ml IH Q2H PRN PRN Reason: Shortness of Breath Last Admin: 05/04/17 15:34 Dose: 3 ml Albuterol/Ipratropium (Duoneb 3 Mg/0.5 Mg (3 Ml) Ud) 3 ml IH [id number] [facility] Last Admin: 05/04/17 06:58 Dose: Not Given Aspirin (Ecotrin) 81 mg PO DAILY [facility] Last Admin: 05/05/17 09:53 Dose: 81 mg Atorvastatin Calcium (Lipitor) 40 mg PO DIN [facility] Last Admin: 05/04/17 17:37 Dose: Not Given Clopidogrel Bisulfate (Plavix) 75 mg PO DAILY [facility] Last Admin: 05/05/17 09:53 Dose: 75 mg Docusate Sodium (Colace) 100 mg PO BID PRN PRN Reason: Constipation Metoprolol Tartrate (Lopressor) 25 mg PO BRKDIN [facility] Ondansetron HCl (Zofran Inj) 4 mg IVP Q8H PRN PRN Reason: Nausea/Vomiting Pantoprazole Sodium (Protonix Ec Tab) 40 mg PO 0600 [facility] Last Admin: 05/05/17 06:17 Dose: 40 mg - Labs Labs: 05/05/17 05:30 05/05/17 05:30 PT 11.4 Seconds (9.9-11.8) 05/03/17 22:08 INR 1.06 (0.93-1.08) 05/03/17 22:08 APTT 26.6 Seconds (23.7-30.8) 05/03/17 22:08 - Constitutional Appears: Non-toxic, No Acute Distress - Head Exam Head Exam: ATRAUMATIC, NORMOCEPHALIC - Eye Exam Eye Exam: EOMI, Normal appearance, PERRL - ENT Exam ENT Exam: Mucous Membranes Moist - Neck Exam Neck Exam: absent: Lymphadenopathy, Thyromegaly Additional comments: No JVD - Respiratory Exam Additional comments: Bibasilar rales, mild - Cardiovascular Exam Cardiovascular Exam: RRR, +S1, +S2. absent: Bradycardia, Tachycardia, Murmur - GI/Abdominal Exam GI & Abdominal Exam: Soft, Normal Bowel Sounds. absent: Tenderness - Extremities Exam Extremities Exam: Normal Capillary Refill, Normal Inspection. absent: Calf Tenderness, Pedal Edema Additional comments: Pedal pulses palpable bilaterally - Neurological Exam Neurological Exam: Alert, Awake, Oriented x3 - Psychiatric Exam Psychiatric exam: Normal Affect, Normal Mood - Skin Skin Exam: Dry, Intact Assessment and Plan - Assessment and Plan (Free Text) Assessment: This is a 61 yo Spanish-speaking M with PMH HTN, AFib, HLD, and unspecified lung disorder 2/2 active tobacco use (30 PYH) who presented to [facility] with complaint of midsternal sharp chest pain persisting for > 3 hours prior to arrival, having a STEMI, s/p emergent cardiac cath with 2 stents placed. Plan: 1. STEMI - Patient initially presented with sharp midsternal CP, STEMI noted on EKG, code heart called, s/p emergent cardiac cath w/2 CAL placed - Cardio (Ernestina) on consult, all recs appreciated - As per Cardio, 2x stents placed, in proximal LCX and obtuse marginal branch of LCX - Serial EKG's ordered, show resolution of STEMI post cath - Trending cardiac enzymes - Echo ordered for tomorrow - On ASA, Plavix, and Lipitor - Avoid BB due to borderline bradycardia, per cardio - Now off Heparin drip - Currently stable, will downgrade to Telemetry - Heart healthy diet 2. H/o tobacco abuse with unclear pulm dz - Unclear lung disease per patient's hx, but given home medications and smoking hx, likely COPD vs emphysema - Satting well on room air, currently on nasal canula - Nebs q4 abrahan and q2 prn - In setting of suspected COPD, maintain SaO2 > 90%, avoid persistently 100% SaO2 to prevent depressing the respiratory drive - Reviewed tobacco cessation with patient, highlighted importance of quitting in the setting of active cardiac disease - CXR in ED negative for acute infiltrate, does not appear to be hyperinflated; repeat CXR shows the same GI/DVT Ppx Patient seen, reviewed, and discussed with attending <Rajinder Butler - Last Filed: 05/05/17 11:29> Objective - Vital Signs/Intake and Output Vital Signs (last 24 hours): Temp Pulse Resp BP Pulse Ox 98.7 F 65 21 103/57 L 97 05/05/17 01:00 05/05/17 10:00 05/05/17 10:00 05/05/17 08:00 05/05/17 10:00 Intake and Output: 05/05/17 05/05/17 06:59 18:59 Intake Total 900 Output Total 950 Balance -50 - Medications Medications: Current Medications Acetaminophen (Tylenol 325mg Tab) 650 mg PO Q4 PRN PRN Reason: Fever >100.4 F Albuterol/Ipratropium (Duoneb 3 Mg/0.5 Mg (3 Ml) Ud) 3 ml IH Q2H PRN PRN Reason: Shortness of Breath Last Admin: 05/04/17 15:34 Dose: 3 ml Albuterol/Ipratropium (Duoneb 3 Mg/0.5 Mg (3 Ml) Ud) 3 ml IH [id number] [facility] Last Admin: 05/04/17 06:58 Dose: Not Given Aspirin (Ecotrin) 81 mg PO DAILY [facility] Last Admin: 05/05/17 09:53 Dose: 81 mg Atorvastatin Calcium (Lipitor) 40 mg PO DIN [facility] Last Admin: 05/04/17 17:37 Dose: Not Given Clopidogrel Bisulfate (Plavix) 75 mg PO DAILY [facility] Last Admin: 05/05/17 09:53 Dose: 75 mg Docusate Sodium (Colace) 100 mg PO BID PRN PRN Reason: Constipation Metoprolol Tartrate (Lopressor) 25 mg PO BRKDIN [facility] Ondansetron HCl (Zofran Inj) 4 mg IVP Q8H PRN PRN Reason: Nausea/Vomiting Pantoprazole Sodium (Protonix Ec Tab) 40 mg PO 0600 [facility] Last Admin: 05/05/17 06:17 Dose: 40 mg - Labs Labs: 05/05/17 05:30 05/05/17 05:30 PT 11.4 Seconds (9.9-11.8) 05/03/17 22:08 INR 1.06 (0.93-1.08) 05/03/17 22:08 APTT 26.6 Seconds (23.7-30.8) 05/03/17 22:08 Attending/Attestation - Attestation I have personally seen and examined this patient.: Yes I have fully participated in the care of the patient.: Yes I have reviewed all pertinent clinical information, including history, physical exam and plan: Yes Notes (Text): 05/05/17 11:23 61 year old male wiht past medical history of hypertension and smoker who presented with chest pain. He was found to have STEMI and is s/p cardiac cath with 2 stents placed. He is on aspirin, plavix and statin. He is not on BB due to borderline bradycardia. Cardiology is following the patient. Echocardiogram is pending. Will need to clarify with patient/family/pmd if he has history of afib or arrythmia in the past. He had transient elevation of LFTs which are improving. Hepatitis panel is ordered. Monitor LFTs closely while patient is on statin. Plan for possible downgrade to telemetry unit today. He was counselled on smoking cessation. Rajinder Butler MD Hospitalist.
[2017-05-05 11:14] LABS: TROPONIN I 29.6 ng/mL
--- NOTE | 2017-05-05 16:21 | CARD ---
APPROVED REPORT EKG Measurement Heart [id number] 160P58 [id number] <Conclusion> Normal sinus rhythm Left axis deviation Inferior-posterior infarct, age undetermined T wave abnormality, consider lateral ischemia Abnormal ECG
--- NOTE | 2017-05-05 16:30 | PN ---
DATE: 05/05/2017 SUBJECTIVE: The patient is seen lying in bed in the ICU. He is comfortable at the present time. He denies any chest pain or dyspnea. His peak troponin was 86.6 and repeat 56.8. Morning blood work is pending. CURRENT MEDICATIONS: Include DuoNeb inhaler, Ecotrin 81 mg daily, Plavix 75 mg daily, Lipitor 40 mg daily and Protonix 40 mg daily. OBJECTIVE: GENERAL: He is a middle-aged man, who appears comfortable at the present time. VITAL SIGNS: Blood pressure is 102/56 with a pulse of 60 and sinus and respirations were 16. He is afebrile. HEENT: No JVD. CHEST: Few scattered rhonchi noted. HEART: PMI displaced laterally. No pathological murmurs, rubs or gallops noted. ABDOMEN: Soft. Nontender. Normoactive bowel sounds. EXTREMITIES: No edema. DIAGNOSTIC DATA: Hemoglobin and hematocrit 15.3 and 45.5 with a white count of 9.4, platelet count of 128,000. Potassium 4.2, BUN and creatinine 11 and 0.9. Electrocardiogram reveals a sinus rhythm with inferior wall myocardial infarction pattern. IMPRESSION: 1. Coronary artery disease, status post acute inferior-posterior wall myocardial infarction treated with percutaneous coronary intervention of left circumflex artery on emergent basis. 2. History of tobacco abuse. RECOMMENDATIONS: Transfer to telemetry is advisable. The patient should be gotten out of bed and ambulated. Echocardiogram has been ordered and pending. This will be reviewed. Followup enzymes and electrocardiogram will be planned. Smoking abstinence was strongly encouraged. Low-dose beta-phoenix will be initiated as tolerated. Aspirin, Plavix and statin therapy will continue. We will continue to follow along as needed. Carlos Do MD [facility]TD[facility]
[2017-05-06 00:35] VITALS: RESP 20
[2017-05-06] MEDS: Pantoprazole 40 mg EC Tab PO SCH (05:13)
[2017-05-06 06:05] VITALS: O2SAT 98
[2017-05-06 08:45] LABS: BASO # 0.04 K/mm3 (0.0-2.0); BASO % 0.4 % (0.0-3.0); EOS # 0.3 (0.0-0.7); EOS % 3.4 % (1.5-5.0); GRAN # 4.25 (1.4-6.5); HEMATOCRIT 48.4 % (42.0-52.0); LYMPH # 3.8 (1.2-3.4); LYMPH % 39.7 % (22.0-35.0); MEAN CELL VOLUME 86.9 fl (80.0-105.0); MEAN CORPUSCULAR HGB CONC 34.5 g/dl (31.0-37.0); MEAN PLATELET VOLUME 9.5 fl (7.0-11.0); MONO # 1.1 (0.1-0.6); MONO % 11.5 % (1.0-6.0); WHITE BLOOD COUNT 9.5 10^3/ul (4.5-11.0)
[2017-05-06 08:53] LABS: ALB/GLOB RATIO 1.5 (1.1-1.8); ALKALINE PHOSPHATASE 71 U/L (38-126); ALT/SGPT 52 U/L (7-56); AST/SGOT 93 U/L (17-59); BILIRUBIN,TOTAL 1.4 mg/dL (0.2-1.3); BLOOD UREA NITROGEN 15 mg/dL (7-21); CALCIUM 9.4 mg/dL (8.4-10.5); CARBON DIOXIDE 27 mmol/L (21-33); CHLORIDE 104 mmol/L (98-107); GFR AFRICAN-AMERICAN > 60; GLUCOSE,RANDOM 101 mg/dL (70-110); POTASSIUM 4.1 mmol/L (3.6-5.0); SODIUM 138 mmol/L (132-148)
--- NOTE | 2017-05-06 09:48 | PN ---
DATE: 05/06/2017 SUBJECTIVE: The patient is seen lying in bed on telemetry. He is currently comfortable. He apparently did some ambulation yesterday with no limitation. He has had no recurrent chest pain. He did refuse a dose of beta-phoenix, which had been ordered for him yesterday. CURRENT MEDICATIONS: Include DuoNeb inhaler, Ecotrin, Plavix, Lipitor 40 mg daily, metoprolol 25 mg b.i.d., and Protonix. OBJECTIVE: GENERAL: He is a middle-aged man, who appears comfortable at rest. VITAL SIGNS: His blood pressure is 106/60 with a pulse of 70 in sinus, respirations are 14, he is afebrile. HEENT: No JVD. CHEST: Few scattered rhonchi. HEART: PMI in normal position. No pathological gallops noted. ABDOMEN: Soft and nontender with bowel sounds. EXTREMITIES: No edema. DIAGNOSTIC DATA: Morning blood work is pending. IMPRESSION: 1. Coronary artery disease, status post recent acute inferior-posterior wall myocardial infarction. Successful percutaneous coronary intervention of left circumflex artery performed in the setting of infarct. 2. History of tobacco abuse. RECOMMENDATIONS: His current medications should be continued. He was encouraged to accept the use of low dose beta-phoenix therapy. His heart rate and blood pressure will be monitored. Repeat cardiac enzymes will be checked this morning. Continued smoking abstinence is advised. An echocardiogram is pending as well. Increased activity is advised and discharge within the next 24 hours is likely planned if no other significant complications occur. We will be happy to follow along as needed. Carlos Do MD
[2017-05-06 11:58] VITALS: TEMP 98.9
[2017-05-06 17:45] VITALS: BP 109/51; PULSE 57
--- NOTE | 2017-05-06 18:55 | CARD ---
APPROVED REPORT EXAM: Two-dimensional and M-mode echocardiogram with Doppler and color Doppler. INDICATION S/P STEMI 2D DIMENSIONS Left Atrium (2D)3.8 (1.6-4.0cm)IVSd1.3 (0.7-1.1cm) LVDd4.1 (3.9-5.9cm)PWd1.3 (0.7-1.1cm) LVDs3.0 (2.5-4.0cm)FS (%) 26.6 % LVEF (%)52.3 (>50%) M-Mode DIMENSIONS Aortic Root3.30 (2.2-3.7cm)Aortic Cusp Exc.1.90 (1.5-2.0cm) Aortic Valve AoV Peak Hwnzprha008.0cm/Manolo Peak GR.9mmHg Mitral Valve MV E Ujsnyyew020.0cm/sMV A Vrjaiuge93.1cm/sE/A ratio1.8 TDI Lateral E' Peak V8.29cm/sMedial E' Peak V7.31cm/sE/Lateral E'12.1 E/Medial E'13.7 Pulmonary Valve PV Peak Hcvynfaj69.1cm/sPV Peak Grad.2mmHg Tricuspid Valve TR Peak Pbvfwusv741ju/sRAP RQVPBMHV05naPiON Peak Gr.43mmHg [id number] LEFT VENTRICLE The left ventricle is normal size. There is borderline concentric left ventricular hypertrophy. The left ventricular function is normal. The left ventricular ejection fraction is within the normal range. There is normal LV segmental wall motion. Transmitral Doppler flow pattern is Grade II-pseudonormal filling dynamics. RIGHT VENTRICLE The right ventricle is normal size. There is normal right ventricular wall thickness. The right ventricular systolic function is normal. ATRIA The left atrium size is normal. The right atrium size is normal. AORTIC VALVE The aortic valve is not well visualized. There is trace aortic regurgitation. MITRAL VALVE The mitral valve is normal in structure. Mitral regurgitation is trace. TRICUSPID VALVE There is mild tricuspid regurgitation. There is mild to moderate pulmonary hypertension. GREAT VESSELS The aortic root is normal in size. PERICARDIAL EFFUSION There is a trace loculated anterior pericardial effusion. <Conclusion> The left ventricle is normal size. There is borderline concentric left ventricular hypertrophy. The left ventricular function is normal. The left ventricular ejection fraction is within the normal range. There is normal LV segmental wall motion. Transmitral Doppler flow pattern is Grade II-pseudonormal filling dynamics. There is mild tricuspid regurgitation. There is mild to moderate pulmonary hypertension.
--- NOTE | 2017-05-07 20:28 | CP.PCM.DIS ---
<KAYLAN ULLOA - Last Filed: 05/07/17 20:17> Provider - Provider Date of Admission: 05/03/17 23:26 Attending physician: Rajinder Butler MD Consults: Cardio: Hefferan Time Spent in preparation of Discharge (in minutes): 50 Diagnosis - Discharge Diagnosis (1) Myocardial infarction of inferior wall Status: Acute Priority: High Hospital Course - Lab Results Lab Results: Micro Results 05/04/17 03:26 Naris MRSA Culture (Admit) - Final MRSA NOT DETECTED Most Recent Lab Values WBC 9.5 10^3/ul (4.5-11.0) 05/06/17 07:33 RBC 5.57 10^6/uL (3.5-6.1) 05/06/17 07:33 Hgb 16.7 g/dL (14.0-18.0) 05/06/17 07:33 Hct 48.4 % (42.0-52.0) 05/06/17 07:33 MCV 86.9 fl (80.0-105.0) 05/06/17 07:33 MCH 30.0 pg (25.0-35.0) 05/06/17 07:33 MCHC 34.5 g/dl (31.0-37.0) 05/06/17 07:33 RDW 14.0 % (11.5-14.5) 05/06/17 07:33 Plt Count 133 10^3/uL (120.0-450.0) 05/06/17 07:33 MPV 9.5 fl (7.0-11.0) 05/06/17 07:33 Gran % 45.0 % (50.0-68.0) L 05/06/17 07:33 Lymph % (Auto) 39.7 % (22.0-35.0) H 05/06/17 07:33 [place] % (Auto) 11.5 % (1.0-6.0) H 05/06/17 07:33 Eos % (Auto) 3.4 % (1.5-5.0) 05/06/17 07:33 Baso % (Auto) 0.4 % (0.0-3.0) 05/06/17 07:33 Gran # 4.25 (1.4-6.5) 05/06/17 07:33 Lymph # 3.8 (1.2-3.4) H 05/06/17 07:33 [place] # 1.1 (0.1-0.6) H 05/06/17 07:33 Eos # 0.3 (0.0-0.7) 05/06/17 07:33 Baso # 0.04 K/mm3 (0.0-2.0) 05/06/17 07:33 PT 11.4 Seconds (9.9-11.8) 05/03/17 22:08 INR 1.06 (0.93-1.08) 05/03/17 22:08 APTT 26.6 Seconds (23.7-30.8) 05/03/17 22:08 Sodium 138 mmol/L (132-148) 05/06/17 07:33 Potassium 4.1 mmol/L (3.6-5.0) 05/06/17 07:33 Chloride 104 mmol/L (98-107) 05/06/17 07:33 Carbon Dioxide 27 mmol/L (21-33) 05/06/17 07:33 Anion Gap 11 (10-20) 05/06/17 07:33 BUN 15 mg/dL (7-21) 05/06/17 07:33 Creatinine 1.0 mg/dL (0.5-1.4) 05/06/17 07:33 Est GFR ( Amer) > 60 05/06/17 07:33 Est GFR (Non-Af Amer) > 60 05/06/17 07:33 POC Glucose (mg/dL) 119 mg/dL (65-110) H 05/03/17 22:06 Random Glucose 101 mg/dL (70-110) 05/06/17 07:33 Calcium 9.4 mg/dL (8.4-10.5) 05/06/17 07:33 Phosphorus 2.8 mg/dL (2.5-4.5) 05/05/17 05:30 Magnesium 1.7 mg/dL (1.7-2.2) 05/05/17 05:30 Total Bilirubin 1.4 mg/dL (0.2-1.3) H 05/06/17 07:33 AST 93 U/L (17-59) H D 05/06/17 07:33 ALT 52 U/L (7-56) 05/06/17 07:33 Alkaline Phosphatase 71 U/L (38-126) 05/06/17 07:33 Lactate Dehydrogenase 1593 U/L (333-699) H 05/05/17 10:47 Total Creatine Kinase 658 U/L (35-230) H 05/05/17 10:47 CK-MB (CK-2) 20.7 ng/mL (0.0-3.6) H 05/05/17 10:47 CK-MB (CK-2) % 3.1 % (2.5-3.0) H 05/05/17 10:47 Troponin I 23.60 ng/mL H* D 05/06/17 07:33 Total Protein 7.0 g/dL (5.8-8.3) 05/06/17 07:33 Albumin 4.1 g/dL (3.0-4.8) 05/06/17 07:33 Globulin 2.8 gm/dL 05/06/17 07:33 Albumin/Globulin Ratio 1.5 (1.1-1.8) 05/06/17 07:33 Hepatitis A IgM Ab Negative (NEGATIVE) 05/05/17 11:24 Hep Bs Antigen Negative (NEGATIVE) 05/05/17 11:24 Hep B Core IgM Ab Negative (NEGATIVE) 05/05/17 11:24 Hepatitis C Antibody Negative (NEGATIVE) 05/05/17 11:24 - Hospital Course Hospital Course: 61 yo M with PMH HTN, unspecified arrhythmia, HLD, and unspecified lung disorder 2/2 active tobacco use (30 PYH) who intially presented to [facility] with complaint of midsternal sharp chest pain persisting for > 3 hours prior to arrival. EKG in the ER showed STEMI, code heart was called and patient was taken for emergent cardiac cath with placement of 2 CAL. He was subsequently placed on ASA, Plavix, and , though BB was initially held due to borderline bradycardia. Patient has since remained stable, and was eventually put on low dose beta phoenix for cardio protection as well as history of an unspecified arrhythmia. Troponins were trended after the procedure and continued to downtrend. Serial EKG's after cath showed resolution of STEMI. Echo completed today pending official read. Patient again strongly encouraged to quit smoking. On the day of discharge, patient denies any CP, SOB, N/V, diaphoresis, abdominal pain, arm pain, neck pain. He has been out of bed and walking around independently. Patient instructed to follow up with Dr. Do after discharge. All medications discussed, and all questions were answered to his satisfaction, and patient was discharged to home. Patient seen, reviewed, and discussed with attending Discharge Exam - Head Exam Head Exam: ATRAUMATIC, NORMOCEPHALIC - Eye Exam Eye Exam: EOMI, PERRL - ENT Exam ENT Exam: Mucous Membranes Moist - Neck Exam Neck exam: Normal Inspection - Respiratory Exam Respiratory Exam: Clear to PA & Lateral, NORMAL BREATHING PATTERN. absent: Chest Wall Tenderness, Rales, Rhonchi, Wheezes - Cardiovascular Exam Cardiovascular Exam: REGULAR RHYTHM, +S1, +S2. absent: Bradycardia - GI/Abdominal Exam GI & Abdominal Exam: Normal Bowel Sounds, Soft. absent: Tenderness - Extremities Exam Extremities exam: normal inspection - Neurological Exam Neurological exam: Alert, CN II-XII Intact, Oriented x3 - Psychiatric Exam Psychiatric exam: Normal Affect, Normal Mood - Skin Skin Exam: Dry, Intact, Normal Color Discharge Plan - Discharge Medications Prescriptions: Aspirin [Ecotrin] 81 mg PO DAILY #30 Atorvastatin [Lipitor] 40 mg PO DIN #30 tab Clopidogrel [Plavix] 75 mg PO DAILY #30 tab - Follow Up Plan Condition: CRITICAL Disposition: HOME/ ROUTINE Instructions: Myocardial Infarction (DC), Heart Healthy Diet (GEN) Additional Instructions: 1. Continue to take aspirin and plavix daily without interruption 2. Lipitor increased from 10mg daily to 40mg daily 3. Continue to take home Sotalol daily 4. Follow up with Dr. Do for results of echocardiogram 5. Avoid strenous activity until next appointment with Dr. Do 6. Follow up with primary doctor within 1 week 7. For any new or worsening concerns, contact PCP immediately, or return to ER <Rajinder Butler - Last Filed: 05/08/17 08:20> Provider - Provider Date of Admission: 05/03/17 23:26 Attending physician: Rajinder Butler MD Hospital Course - Lab Results Lab Results: Micro Results 05/04/17 03:26 Naris MRSA Culture (Admit) - Final MRSA NOT DETECTED Most Recent Lab Values WBC 9.5 10^3/ul (4.5-11.0) 05/06/17 07:33 RBC 5.57 10^6/uL (3.5-6.1) 05/06/17 07:33 Hgb 16.7 g/dL (14.0-18.0) 05/06/17 07:33 Hct 48.4 % (42.0-52.0) 05/06/17 07:33 MCV 86.9 fl (80.0-105.0) 05/06/17 07:33 MCH 30.0 pg (25.0-35.0) 05/06/17 07: MCHC 34.5 g/dl (31.0-37.0) 05/06/17 07:33 RDW 14.0 % (11.5-14.5) 05/06/17 07:33 Plt Count 133 10^3/uL (120.0-450.0) 05/06/17 07:33 MPV 9.5 fl (7.0-11.0) 05/06/17 07:33 Gran % 45.0 % (50.0-68.0) L 05/06/17 07:33 Lymph % (Auto) 39.7 % (22.0-35.0) H 05/06/17 07:33 [place] % (Auto) 11.5 % (1.0-6.0) H 05/06/17 07:33 Eos % (Auto) 3.4 % (1.5-5.0) 05/06/17 07:33 Baso % (Auto) 0.4 % (0.0-3.0) 05/06/17 07:33 Gran # 4.25 (1.4-6.5) 05/06/17 07:33 Lymph # 3.8 (1.2-3.4) H 05/06/17 07:33 [place] # 1.1 (0.1-0.6) H 05/06/17 07:33 Eos # 0.3 (0.0-0.7) 05/06/17 07:33 Baso # 0.04 K/mm3 (0.0-2.0) 05/06/17 07:33 PT 11.4 Seconds (9.9-11.8) 05/03/17 22:08 INR 1.06 (0.93-1.08) 05/03/17 22:08 APTT 26.6 Seconds (23.7-30.8) 05/03/17 22:08 Sodium 138 mmol/L (132-148) 05/06/17 07:33 Potassium 4.1 mmol/L (3.6-5.0) 05/06/17 07:33 Chloride 104 mmol/L (98-107) 05/06/17 07:33 Carbon Dioxide 27 mmol/L (21-33) 05/06/17 07:33 Anion Gap 11 (10-20) 05/06/17 07:33 BUN 15 mg/dL (7-21) 05/06/17 07:33 Creatinine 1.0 mg/dL (0.5-1.4) 05/06/17 07:33 Est GFR ( Amer) > 60 05/06/17 07:33 Est GFR (Non-Af Amer) > 60 05/06/17 07:33 POC Glucose (mg/dL) 119 mg/dL (65-110) H 05/03/17 22:06 Random Glucose 101 mg/dL (70-110) 05/06/17 07:33 Calcium 9.4 mg/dL (8.4-10.5) 05/06/17 07:33 Phosphorus 2.8 mg/dL (2.5-4.5) 05/05/17 05:30 Magnesium 1.7 mg/dL (1.7-2.2) 05/05/17 05:30 Total Bilirubin 1.4 mg/dL (0.2-1.3) H 05/06/17 07:33 AST 93 U/L (17-59) H D 05/06/17 07:33 ALT 52 U/L (7-56) 05/06/17 07:33 Alkaline Phosphatase 71 U/L (38-126) 05/06/17 07:33 Lactate Dehydrogenase 1593 U/L (333-699) H 05/05/17 10:47 Total Creatine Kinase 658 U/L (35-230) H 05/05/17 10:47 CK-MB (CK-2) 20.7 ng/mL (0.0-3.6) H 05/05/17 10:47 CK-MB (CK-2) % 3.1 % (2.5-3.0) H 05/05/17 10:47 Troponin I 23.60 ng/mL H* D 05/06/17 07:33 Total Protein 7.0 g/dL (5.8-8.3) 05/06/17 07:33 Albumin 4.1 g/dL (3.0-4.8) 05/06/17 07:33 Globulin 2.8 gm/dL 05/06/17 07:33 Albumin/Globulin Ratio 1.5 (1.1-1.8) 05/06/17 07:33 Hepatitis A IgM Ab Negative (NEGATIVE) 05/05/17 11:24 Hep Bs Antigen Negative (NEGATIVE) 05/05/17 11:24 Hep B Core IgM Ab Negative (NEGATIVE) 05/05/17 11:24 Hepatitis C Antibody Negative (NEGATIVE) 05/05/17 11:24 Attending/Attestation - Attestation I have personally seen and examined this patient.: Yes I have fully participated in the care of the patient.: Yes I have reviewed all pertinent clinical information, including history, physical exam and plan: Yes Notes (Text): DISCHARGE SUMMARY FOR 05/06/17 61 year old male wiht past medical history of hypertension and smoker who presented with chest pain. He was found to have STEMI and is s/p cardiac cath with 2 stents placed. He is on aspirin, plavix, sotalol and statin as per cardiology. He had transient elevation of LFTs began to improve. Hepatitis was negative. Patient is discharged home to follow up with pmd and cardiology. Recommended to monitor LFTs closely while patient is on statin. He was counselled on smoking cessation. Rajinder Butler MD Hospitalist.
== END 2017-05-06 18:42 | disposition home or self-care (01) | DRG 808 ==
LOC: ED 21:59 → ERH 23:26 → CCU 05-04 02:21 → 2RSO 05-05 13:36
PROVIDERS: ADMIT Internal Medicine; ATTEND Internal Medicine
PROC: 02703ZZ Dilation of Coronary Artery, One Artery, Percutaneous Approach (ICD-10-PCS; principal; 2017-05-03)
PROC: 4A023N7 Measurement of Cardiac Sampling and Pressure, Left Heart, Percutaneous Approach (ICD-10-PCS; 2017-05-03)
PROC: B2111ZZ Fluoroscopy of Multiple Coronary Arteries using Low Osmolar Contrast (ICD-10-PCS; 2017-05-03)
PROC: B2151ZZ Fluoroscopy of Left Heart using Low Osmolar Contrast (ICD-10-PCS; 2017-05-03)
DX: I21.19 ST elevation (STEMI) myocardial infarction involving other coronary artery of inferior wall (principal); I25.10 Atherosclerotic heart disease of native coronary artery without angina pectoris; I10 Essential (primary) hypertension; J44.9 Chronic obstructive pulmonary disease, unspecified; E78.5 Hyperlipidemia, unspecified; I48.91 Unspecified atrial fibrillation; F17.210 Nicotine dependence, cigarettes, uncomplicated; Z95.5 Presence of coronary angioplasty implant and graft

== ENCOUNTER 2017-05-08 16:54 | Inpatient (IN) | payer MEDICAID ==
[2017-05-08 17:51] LABS: ALB/GLOB RATIO 1.3 (1.1-1.8); ALKALINE PHOSPHATASE 67 U/L (38-126); ALT/SGPT 35 U/L (7-56); AST/SGOT 46 U/L (17-59); BILIRUBIN,TOTAL 1.3 mg/dL (0.2-1.3); BLOOD UREA NITROGEN 17 mg/dL (7-21); CALCIUM 9.1 mg/dL (8.4-10.5); CARBON DIOXIDE 26 mmol/L (21-33); CHLORIDE 101 mmol/L (98-107); GFR AFRICAN-AMERICAN > 60; GLUCOSE,RANDOM 175 mg/dL (70-110); MAGNESIUM 1.9 mg/dL (1.7-2.2); POTASSIUM 4.4 mmol/L (3.6-5.0); SODIUM 137 mmol/L (132-148); TOTAL PROTEIN 7.2 g/dL (5.8-8.3)
[2017-05-08 18:00] LABS: BASO # 0.03 K/mm3 (0.0-2.0); BASO % 0.5 % (0.0-3.0); EOS # 0.3 (0.0-0.7); EOS % 5.3 % (1.5-5.0); GRAN # 3.01 (1.4-6.5); GRAN % 48.4 % (50.0-68.0); HEMATOCRIT 48.3 % (42.0-52.0); LYMPH # 2.1 (1.2-3.4); LYMPH % 33.9 % (22.0-35.0); MEAN CORPUSCULAR HEMOGLOBIN 29.9 pg (25.0-35.0); MEAN CORPUSCULAR HGB CONC 34.4 g/dl (31.0-37.0); MONO # 0.7 (0.1-0.6); MONO % 11.9 % (1.0-6.0); RED CELL DISTRIBUTION WIDTH 13.8 % (11.5-14.5); WHITE BLOOD COUNT 6.2 10^3/ul (4.5-11.0)
[2017-05-08 18:03] LABS: TROPONIN I 5.78 ng/mL
[2017-05-08 18:06] LABS: INR 1.05 (0.93-1.08); PARTIAL THROMBOPLASTIN TIME 26.8 Seconds (23.7-30.8)
--- NOTE | 2017-05-08 18:06 | ED PDOC ---
Arrival/HPI - General Historian: Patient, Family (Daughter translated ) <Jerry Kerns - Last Filed: 05/08/17 18:25> <Jc Traylor DO - Last Filed: 05/08/17 21:10> - General Chief Complaint: Chest Pain Time Seen by Provider: 05/08/17 16:59 - History of Present Illness Narrative History of Present Illness (Text): 05/08/17 17:47 Patient is a 61 year old male presenting to the hospital with left shoulder pain. Patient was recently released from the hospital 2 days ago, 05/06/2017, s/p placement of 2 stents for inferior-posterior STEMI. Patient states that the pain is his left shoulder only occurs when he is breathing. If he holds his breath, he has no pain. The pain does not radiate anywhere. He is able to localize it with one finger on the anterior portion of his left shoulder. He states that he feels short of breathe. He has felt like this since he left the hospital on 05/06/2017. He called his hedis specialist Dr. Do, who told the patient to come to the ED. PMD: Dr. Bishop (Jerry Kerns) Past Medical History - Provider Review Nursing Documentation Reviewed: Yes - Infectious Disease Hx of Infectious Diseases: None - Cardiac Hx Cardiac Arrhythmia: Yes Other/Comment: cardiac stent - Renal Hx Kidney Stones: Yes - Musculoskeletal/Rheumatological Hx Falls: No - Psychiatric Hx Substance Use: No - Surgical History Other/Comment: Lithrotripsy - Anesthesia Hx Anesthesia: No <Jerry Kerns - Last Filed: 05/08/17 18:25> Family/Social History - Physician Review Nursing Documentation Reviewed: Yes Family/Social History: Unknown Family HX Smoking Status: Heavy Smoker > 10 Cigarettes Daily Hx Alcohol Use: Yes Hx Substance Use: No <Jerry Kerns - Last Filed: 05/08/17 18:25> Allergies/Home Meds <Jerry Kerns - Last Filed: 05/08/17 18:25> <Jc Traylor DO - Last Filed: 05/08/17 21:10> Allergies/Adverse Reactions: Allergies No Known Allergies Allergy (Verified 05/08/17 17:09) Home Medications: Home Meds Medication Instructions Recorded Confirmed Betacore 40 mg PO DAILY 05/08/17 05/08/17 Review of Systems - Physician Review All systems were reviewed & negative as marked: Yes - Review of Systems Constitutional: absent: Fevers Eyes: Normal. absent: Vision Changes ENT: Normal. absent: Sore Throat, Rhinorrhea, Sinus Congestion Respiratory: SOB. absent: Cough, Sputum, Wheezing Cardiovascular: Chest Pain. absent: Palpitations, Edema, Calf Pain Gastrointestinal: Normal. absent: Abdominal Pain Musculoskeletal: Other (left shoulder pain with deep inspiration) Skin: Normal. absent: Rash, Pruritis Neurological: Normal. absent: Headache, Dizziness Endocrine: Normal. absent: Diaphoresis Psychiatric: Normal <Jerry Kerns - Last Filed: 05/08/17 18:25> Physical Exam Vital Signs Reviewed: Yes Temperature: Afebrile Blood Pressure: Normal Pulse: Regular Respiratory Rate: Normal Appearance: Positive for: Well-Appearing, Non-Toxic, Comfortable Pain Distress: None Mental Status: Positive for: Alert and Oriented X 3 - Systems Exam Head: Present: Atraumatic, Normocephalic Extroacular Muscles: Present: EOMI Conjunctiva: Present: Normal Mouth: Present: Moist Mucous Membranes Nose (External): Present: Atraumatic. No: Abrasion Neck: Present: Normal Range of Motion. No: MIDLINE TENDERNESS, JVD, Lymphadenopathy Respiratory/Chest: Present: Clear to Auscultation. No: Respiratory Distress, Accessory Muscle Use, Wheezes, Rhonchi Cardiovascular: Present: Regular Rate and Rhythm, Normal S1, S2. No: Murmurs, Tachycardic, Rub Abdomen: Present: Normal Bowel Sounds. No: Tenderness, Distention, Peritoneal Signs Upper Extremity: Present: Normal Inspection, NORMAL PULSES. No: Edema, Tenderness, Swelling Lower Extremity: Present: Normal Inspection, NORMAL PULSES. No: Edema, CALF TENDERNESS, Tenderness, Swelling Neurological: Present: GCS=15, Speech Normal, Motor Func Grossly Intact Skin: Present: Warm, Dry, Normal Color. No: Rashes Psychiatric: Present: Alert, Oriented x 3, Normal Insight, Normal Concentration <Jerry Kerns - Last Filed: 05/08/17 18:25> Medical Decision Making <Jerry Kerns - Last Filed: 05/08/17 18:25> <Jc Traylor DO - Last Filed: 05/08/17 21:10> ED Course and Treatment: 05/08/17 18:22 Chest Pain - EKG - NSR @ 70bpm, left axis, LVH, Q waves in Leads I, II, III, aVF, V4-V5 , unchanged from last ekg from hospital stay on 05/05/2017 - CXR - No acute disease - CBC/CMP - WNL - Troponins - 5.78 (expected to be elevated. Peak trop on previous stay was 86.6 on 05/04, repeat trop 23.6 on 05/06.) - Lactate Dehydrogenase 1044 (05/05/2017 - 1593) - BNP - 523 (no prior study) Dispo: Due to patient's recent cardiac event on 05/03/2017 and placement of 2 stents, patient will be admitted to telemetry for observation. Spoke to Dr. Butler, he has accepted this patient on to his service. Dr. Do is this patient's hedis specialist. (Jerry Kerns) A 61 year old male with chest pain. In agreement with resident note, which includes further HPI details. Patient was seen and evaluated with resident, came up with plan and treatment together. (Jc Traylor DO) - Lab Interpretations Lab Results: 05/08/17 17:21 05/08/17 17:21 Lab Results 05/08/17 18:00: PT 11.3, INR 1.05, APTT 26.8 05/08/17 17:21: Sodium 137, Potassium 4.4, Chloride 101, Carbon Dioxide 26, Anion Gap 14, BUN 17, Creatinine 1.0, Est GFR ( Amer) > 60, Est GFR (Non- Af Amer) > 60, Random Glucose 175 H, Calcium 9.1, Magnesium 1.9, Total Bilirubin 1.3, AST 46, ALT 35, Alkaline Phosphatase 67, Lactate Dehydrogenase 1044 H, Total Creatine Kinase 220, Troponin I 5.78 H* D, NT-Pro-B Natriuret Pep 523 H, Total Protein 7.2, Albumin 4.1, Globulin 3.1, Albumin/Globulin Ratio 1.3 05/08/17 17:21: WBC 6.2 D, RBC 5.55, Hgb 16.6, Hct 48.3, MCV 87.0, MCH 29.9, MCHC 34.4, RDW 13.8, Plt Count 167, MPV 10.0, Gran % 48.4 L, Lymph % (Auto) 33.9 , [place] % (Auto) 11.9 H, Eos % (Auto) 5.3 H, Baso % (Auto) 0.5, Gran # 3.01, Lymph # 2.1, [place] # 0.7 H, Eos # 0.3, Baso # 0.03 - RAD Interpretation Radiology Orders: 05/08/17 17:14 CHEST PORTABLE [RAD] Stat - Medication Orders Current Medication Orders: Aspirin (Ecotrin) 81 mg PO DAILY ANILA Atorvastatin Calcium (Lipitor) 40 mg PO DIN ANILA Last Admin: 05/08/17 20:58 Dose: 40 mg Clopidogrel Bisulfate (Plavix) 75 mg PO DAILY ANILA Docusate Sodium (Colace) 100 mg PO BID ANILA Famotidine (Pepcid) 20 mg PO 1000,2200 ANILA Heparin Sodium (Porcine) (Heparin) 5,000 units SC Q12 ANILA PRN Reason: Protocol Morphine Sulfate (Morphine) 2 mg IVP Q3 PRN PRN Reason: Pain, severe (8-10) Sotalol HCl (Betapace) 40 mg PO DAILY ANILA Tramadol HCl (Ultram) 50 mg PO TID PRN PRN Reason: Pain, moderate (4-7) Last Admin: 05/08/17 20:58 Dose: 50 mg - PA / PACKAGE LINER / Resident Statement RAMON has reviewed & agrees with the documentation as recorded. RAMON has examined the patient and agrees with the treatment plan. <Jc Traylor DO - Last Filed: 05/08/17 21:10> Disposition/Present on Arrival - Present on Arrival Any Indicators Present on Arrival: No History of DVT/PE: No History of Uncontrolled Diabetes: No Urinary Catheter: No History of Decub. Ulcer: No History Surgical Site Infection Following: None - Disposition Have Diagnosis and Disposition been Completed?: Yes Disposition Time: 18:30 Patient Plan: Observation, Telemetry <Jerry Kerns - Last Filed: 05/08/17 18:25> <Jc Traylor DO - Last Filed: 05/08/17 21:10> - Disposition Diagnosis: Chest pain Disposition: HOSPITALIZED Patient Problems: Current Active Problems Problem Status Onset Chest pain Acute Condition: STABLE
--- NOTE | 2017-05-08 18:52 | RAD ---
HISTORY: chest pain COMPARISON: Chest x-ray performed 05/04/17 TECHNIQUE: Chest, one view. FINDINGS: Examination limited by habitus a and hypoinflation. LUNGS: Mild left basilar atelectasis. Please note that chest x-ray has limited sensitivity for the detection of pulmonary masses. PLEURA: No significant pleural effusion identified. No definite pneumothorax . CARDIOVASCULAR: Heart size appears top normal. OSSEOUS STRUCTURES: No acute osseous abnormality identified. VISUALIZED UPPER ABDOMEN: Small curvilinear lucency at the left upper quadrant presumably air within the stomach. OTHER FINDINGS: None. IMPRESSION: Left basilar atelectasis. Small curvilinear lucency at the left upper quadrant presumably air within the stomach. Correlate clinically. Upright radiograph recommended to exclude possibility of free air. Case discussed with Dr. Traylor on 05/08/17 at 6:49 p.m.
--- NOTE | 2017-05-08 19:02 | CP.PCM.HP ---
<Katlyn Pugh - Last Filed: 05/08/17 21:38> History of Present Illness - History of Present Illness History of Present Illness: CC: Left shoulder pain and SOB since discharge HPI: 61 yo Sami speaking male PMHx CAD s/p 2 stents, HTN, unspecified arhythmia, HLD, and unspecified lung disorder 2/2 tobacco use (1ppd > 30yrs) presented to [facility] with complaint of constant left shoulder pain and shortness of breath since discharge on 05/06. Patient was recently admitted to [facility] for acute STEMI and had an emergent cardiac cath with placement of 2 CAL in the proximal LCx and obtuse marginal branch of LCx. Patient reports that after leaving the hospital on Sunday 05/06, he has been having left shoulder pain worsened with deep inspiration and alleviated if he holds his breath. He reported the pain is dull in quality and denied any radiation to his chest or down his left arm/up his jaw. He also reported SOB with exertion and some orthopnea [patient uses 2 pillows to sleep]. Patient spoke to his certified mortician this morning who told him to come to the ED. Since discharge, patient has been compliant with his medications. On ROS he denied any fever, chills, headache, dizziness, acute chest pain, palpitations, cough, abd pain, nausea, vomiting, bowel/bladder complaints, pain/swelling in his legs bilaterally. He denied any recent travel/ sick contacts. Pattern Weaver: Dr. Do PMHx: CAD s/p 2 stents, HTN, unspecified arhythmia, HLD, and unspecified lung disorder 2/2 tobacco use (1ppd > 30yrs, currently ~1/2 ppd for 6 months) PSurgHx: Denies FamHx: CVA in both parents, denies any hx of HI SocHx: Lives with son, prior tobacco user (last used 05/03 1ppd for > 30 yrs), social EtOH (denies binging), denies illicits/IVDA Meds: ASA 81mg po qd, Plavix 75mg po qd, Atorvastatin 40mg po qhs, Sotalol 40mg qd ALL: NKDA Present on Admission - Present on Admission Any Indicators Present on Admission: No Review of Systems - Review of Systems All systems: reviewed and no additional remarkable complaints except - Constitutional Constitutional: As Per HPI. absent: Chills, Fever - EENT Eyes: As Per HPI. absent: Blurred Vision Ears: As Per HPI. absent: Dizziness Nose/Mouth/Throat: As Per HPI. absent: Sore Throat - Cardiovascular Cardiovascular: As Per HPI, Dyspnea, Dyspnea on Exertion, Orthopnea. absent: Chest Pain, Edema, Lightheadedness, Palpitations - Respiratory Respiratory: As Per HPI, Dyspnea, Dyspnea on Exertion. absent: Cough, Wheezing - Gastrointestinal Gastrointestinal: As Per HPI. absent: Abdominal Pain, Constipation, Diarrhea, Nausea, Vomiting - Genitourinary Genitourinary: As Per HPI. absent: Dysuria - Musculoskeletal Musculoskeletal: As Per HPI. absent: Numbness, Tingling - Integumentary Integumentary: As Per HPI. absent: Rash - Neurological Neurological: As Per HPI. absent: Dizziness, Numbness, Headaches, Tingling - Endocrine Endocrine: As Per HPI. absent: Palpitations, Polydipsia, Polyphagia, Polyuria - Hematologic/Lymphatic Hematologic: As Per HPI. absent: Easy Bleeding, Easy Bruising Past Patient History - Infectious Disease Hx of Infectious Diseases: None - Past Social History Smoking Status: Heavy Smoker > 10 Cigarettes Daily - CARDIAC Hx Cardia Arrhythmia: Yes Other/Comment: cardiac stent - RENAL Hx Kidney Stones: Yes - MUSCULOSKELETAL/RHEUMATOLOGICAL Hx Falls: No - PSYCHIATRIC Hx Substance Use: No - SURGICAL HISTORY Other/Comment: Lithrotripsy - ANESTHESIA Hx Anesthesia: No Meds Allergies/Adverse Reactions: Allergies Allergy/AdvReac Type Severity Reaction Status Date / Time No Known Allergies Allergy Verified 05/08/17 17:09 Physical Exam - Constitutional Appears: Non-toxic, No Acute Distress - Head Exam Head Exam: ATRAUMATIC, NORMAL INSPECTION, NORMOCEPHALIC - Eye Exam Eye Exam: EOMI, Normal appearance, PERRL. absent: Conjunctival injection, Scleral icterus - ENT Exam ENT Exam: Mucous Membranes Moist - Neck Exam Neck exam: Positive for: Full Rom, Normal Inspection. Negative for: Lymphadenopathy - Respiratory Exam Respiratory Exam: Clear to Auscultation Bilateral, NORMAL BREATHING PATTERN. absent: Accessory Muscle Use, Rales, Rhonchi, Wheezes, Respiratory Distress - Cardiovascular Exam Cardiovascular Exam: REGULAR RHYTHM, RRR, +S1, +S2 - GI/Abdominal Exam GI & Abdominal Exam: Normal Bowel Sounds, Soft. absent: Firm, Tenderness - Extremities Exam Extremities exam: Positive for: normal capillary refill, normal inspection, pedal pulses present. Negative for: pedal edema - Back Exam Back exam: NORMAL INSPECTION. absent: rash noted - Neurological Exam Neurological exam: Alert, Oriented x3 - Psychiatric Exam Psychiatric exam: Normal Affect, Normal Mood - Skin Skin Exam: Dry, Intact, Normal Color, Warm Results - Vital Signs Recent Vital Signs: Last Vital Signs Temp 98.2 F 05/08/17 17:00 Pulse 70 05/08/17 17:00 Resp 16 05/08/17 17:00 BP 124/62 05/08/17 17:00 Pulse Ox 98 05/08/17 17:00 - Labs Result Diagrams: 05/08/17 17:21 05/08/17 17:21 Assessment & Plan - Assessment and Plan (Free Text) Assessment: 61 yo Sami speaking male PMHx CAD s/p 2 stents, HTN, unspecified arhythmia, HLD, and unspecified lung disorder 2/2 tobacco use (1ppd > 30yrs) presented to [facility] [place] with complaint of constant left shoulder pain and shortness of breath since discharge on 05/06 Plan: Chest pain- r/o ACS - s/p 2 CAL in the proximal LCx and obtuse marginal branch of LCx - Troponin on admission : 5.78 troponin 05/06 : 23.60 f/u troponin and EKG q6h - proBNP : 523 - Echo 05/06 EF >50% LV normal size Borderline concentric LVH LV function is normal Normal LV segmental wall motion Transmitral Doppler flow pattern is Grade II- pseudonormal filling dynamics Mild tricuspid regurgitation Mild to moderate pulmonary HTN - Continue home medications ASA 81mg po daily Plavix 75mg po daily Lipitor 40mg po qhs Sotalol 40mg po daily - Morphine 2mg ivp q3 prn pain severe - Tramadol 50mg po tid prn pain moderate - Cardiology consult: Dr. Do H/o tobacco abuse with unclear pulm disease - f/u CXR - Suspected COPD, maintain SaO2 > 90% - Duoneb 3ml inh q6 prn SOB GI ppx: Pepcid 20mg po bid, Colace 100mg po bid DVT ppx: Heparin 5000u sc q12, SCDs Diet: Heart healthy diet Case discussed with Dr. Dawson Pugh PGY2 <Hemant Osman Q - Last Filed: 05/09/17 01:01> Results - Vital Signs Recent Vital Signs: Last Vital Signs Temp 98.5 F 05/09/17 00:01 Pulse 61 05/09/17 00:01 Resp 20 05/09/17 00:01 BP 107/75 05/09/17 00:01 Pulse Ox 100 05/09/17 00:01 - Labs Result Diagrams: 05/08/17 17:21 05/08/17 17:21 Labs: Laboratory Results - last 24 hr 05/08/17 23:35 Lactate Dehydrogenase 912 H Total Creatine Kinase 196 Troponin I 5.52 H* Attending/Attestation - Attestation I have personally seen and examined this patient.: Yes I have fully participated in the care of the patient.: Yes I have reviewed all pertinent clinical information: Yes Notes (Text): 05/09/17 00:58 I agree with the above note and exam by the resident with the addition/ exception of the followin61 y/o male with a PMHx Htn, dyslipidemia, CAD s/p recent STEMI earlier this week who returns to the hospital 3 days later with the complaint of left shoulder pain and pain with deep inspiration. Patient had 2 CAL placed during his recent hospitalization and has been compliant with medications. Chest pain appear pleuritic in nature however he does offer complaints of ALMANZAR. He will be evaluated by the certified mortician for possible in stent occlusion/thrombosis. Thus far his troponin levels have been trending downwards and he does not have any new worrisome EKG changes.
[2017-05-08] MEDS ORDERED: Morphine 2 mg/ml ISec IVP PRN (20:43)
[2017-05-08] MEDS ORDERED: Albuterol-Ipratrop 3 mg / 0.5 (3 ml) UD IH PRN (22:22)
[2017-05-08 23:58] VITALS: BMI 27.2
[2017-05-09 00:33] LABS: TROPONIN I 5.52 ng/mL
[2017-05-09 06:41] LABS: BASO # 0.04 K/mm3 (0.0-2.0); BASO % 0.7 % (0.0-3.0); EOS # 0.4 (0.0-0.7); EOS % 7.1 % (1.5-5.0); GRAN # 2.02 (1.4-6.5); HEMATOCRIT 46.6 % (42.0-52.0); LYMPH # 2.6 (1.2-3.4); LYMPH % 44.4 % (22.0-35.0); MEAN CELL VOLUME 87.1 fl (80.0-105.0); MEAN CORPUSCULAR HEMOGLOBIN 29.3 pg (25.0-35.0); MEAN CORPUSCULAR HGB CONC 33.7 g/dl (31.0-37.0); MEAN PLATELET VOLUME 10.2 fl (7.0-11.0); MONO # 0.8 (0.1-0.6); MONO % 13.8 % (1.0-6.0); WHITE BLOOD COUNT 5.9 10^3/ul (4.5-11.0)
[2017-05-09 06:58] LABS: ALB/GLOB RATIO 1.3 (1.1-1.8); ALKALINE PHOSPHATASE 67 U/L (38-126); ALT/SGPT 47 U/L (7-56); AST/SGOT 35 U/L (17-59); BILIRUBIN,TOTAL 0.8 mg/dL (0.2-1.3); BLOOD UREA NITROGEN 17 mg/dL (7-21); CALCIUM 8.7 mg/dL (8.4-10.5); CARBON DIOXIDE 26 mmol/L (21-33); CHLORIDE 105 mmol/L (98-107); GFR AFRICAN-AMERICAN > 60; GLUCOSE,RANDOM 98 mg/dL (70-110); MAGNESIUM 1.9 mg/dL (1.7-2.2); PHOSPHOROUS 4.2 mg/dL (2.5-4.5); SODIUM 138 mmol/L (132-148); TOTAL PROTEIN 6.6 g/dL (5.8-8.3)
[2017-05-09 07:10] LABS: TROPONIN I 4.59 ng/mL
--- NOTE | 2017-05-09 08:21 | RAD ---
HISTORY: Chest pain COMPARISON: 05/08/2017. 17:31. FINDINGS: LUNGS: Stable atelectasis/ infiltrate left lower lobe. PLEURA: No significant pleural effusion identified, no pneumothorax apparent. CARDIOVASCULAR: Normal. OSSEOUS STRUCTURES: No significant abnormalities. VISUALIZED UPPER ABDOMEN: Normal. OTHER FINDINGS: None. IMPRESSION: Stable left lower lobe atelectasis. No free air visualized. No significant interval change compared to the prior examination(s).
--- NOTE | 2017-05-09 17:20 | CP.PCM.PN ---
<JoyceSan Francisco - Last Filed: 05/09/17 17:27> Subjective - Date & Time of Evaluation Date of Evaluation: 05/09/17 Time of Evaluation: :17 - Subjective Subjective: Patient was seen and examined at bedside. Patient is complaining of non radiating pleuritic chest pain that is the same as when he presented to the Emergency Department however it has improved slightly. The patient denies any chest pressure, lightheadedness, dizziness, changes in stool ,sore throat, cough , abdominal pain, weakness in hands or feet, changes in urination, or any other complaints. Objective - Vital Signs/Intake and Output Vital Signs (last 24 hours): Temp Pulse Resp BP Pulse Ox 98.7 F 63 18 111/73 100 05/09/17 11:45 05/09/17 14:00 05/09/17 11:45 05/09/17 11:45 05/09/17 00:01 Intake and Output: 05/09/17 05/09/17 06:59 18:59 Intake Total 660 Balance 660 - Medications Medications: Current Medications Albuterol/Ipratropium (Duoneb 3 Mg/0.5 Mg (3 Ml) Ud) 3 ml IH Q6H PRN PRN Reason: Shortness of Breath Aspirin (Ecotrin) 81 mg PO DAILY [facility] Last Admin: 05/09/17 10:43 Dose: Not Given Atorvastatin Calcium (Lipitor) 40 mg PO DIN [facility] Last Admin: 05/08/17 20:58 Dose: 40 mg Clopidogrel Bisulfate (Plavix) 75 mg PO DAILY [facility] Last Admin: 05/09/17 10:44 Dose: Not Given Docusate Sodium (Colace) 100 mg PO BID [facility] Last Admin: 05/09/17 10:48 Dose: Not Given Famotidine (Pepcid) 20 mg PO 1000,2200 [facility] Last Admin: 05/09/17 10:50 Dose: Not Given Heparin Sodium (Porcine) (Heparin) 5,000 units SC Q12 [facility] PRN Reason: Protocol Last Admin: 05/09/17 10:51 Dose: 5,000 units Morphine Sulfate (Morphine) 2 mg IVP Q3 PRN PRN Reason: Pain, severe (8-10) Sotalol HCl (Betapace) 40 mg PO DAILY [facility] Last Admin: 05/09/17 10:48 Dose: Not Given Tramadol HCl (Ultram) 50 mg PO TID PRN PRN Reason: Pain, moderate (4-7) Last Admin: 05/08/17 20:58 Dose: 50 mg - Labs Labs: PT 11.3 Seconds (9.9-11.8) 05/08/17 18:00 INR 1.05 (0.93-1.08) 05/08/17 18:00 APTT 26.8 Seconds (23.7-30.8) 05/08/17 18:00 - Head Exam Head Exam: ATRAUMATIC, NORMAL INSPECTION, NORMOCEPHALIC - Eye Exam Eye Exam: EOMI, Normal appearance, PERRL. absent: Periorbital tenderness Pupil Exam: NORMAL ACCOMODATION, PERRL. absent: Irregular - ENT Exam ENT Exam: Mucous Membranes Moist, Normal Exam. absent: Normal Oropharynx - Neck Exam Neck Exam: Full ROM, Normal Inspection. absent: Thyromegaly - Respiratory Exam Respiratory Exam: Clear to Ausculation Bilateral, NORMAL BREATHING PATTERN. absent: Respiratory Distress - Cardiovascular Exam Cardiovascular Exam: REGULAR RHYTHM, RRR, +S1, +S2. absent: Gallop, Rubs - GI/Abdominal Exam GI & Abdominal Exam: Soft, Normal Bowel Sounds. absent: Rigid, Tenderness, Organomegaly - Extremities Exam Extremities Exam: Full ROM - Back Exam Back Exam: NORMAL INSPECTION. absent: paraspinal tenderness - Psychiatric Exam Psychiatric exam: Normal Affect, Normal Mood - Skin Skin Exam: Dry, Intact Assessment and Plan - Assessment and Plan (Free Text) Assessment: 61 yo French speaking male PMHx CAD s/p 2 stents, HTN, unspecified arhythmia, HLD, and unspecified lung disorder 2/2 tobacco use (1ppd > 30yrs) presented to [facility] [place] with complaint of constant left shoulder pain and shortness of breath since discharge on 05/06 Plan: Chest pain- r/o ACS - s/p 2 CAL in the proximal LCx and obtuse marginal branch of LCx - Troponin on admission : 5.78 troponin 05/06 : 23.60 Troponin treding down: 5.78-> 5.52-> 4.59. Will continue to monitor. - proBNP : 523 - Echo 05/06 EF >50% LV normal size Borderline concentric LVH LV function is normal Normal LV segmental wall motion Transmitral Doppler flow pattern is Grade II- pseudonormal filling dynamics Mild tricuspid regurgitation Mild to moderate pulmonary HTN - Continue home medications ASA 81mg po daily Plavix 75mg po daily Lipitor 40mg po qhs Sotalol 40mg po daily - Morphine 2mg ivp q3 prn pain severe - Tramadol 50mg po tid prn pain moderate -CXR showed stable left lower lobe atelectasis, which is no change from previous reading. - Cardiology pending -Echo pending H/o tobacco abuse with unclear pulm disease - f/u CXR - Suspected COPD, maintain SaO2 > 90% - Duoneb 3ml inh q6 prn SOB GI ppx: Pepcid 20mg po bid, Colace 100mg po bid DVT ppx: Heparin 5000u sc q12, SCDs <Benson Stratton - Last Filed: 05/15/17 19:01> Objective - Vital Signs/Intake and Output Vital Signs (last 24 hours): Temp Pulse Resp BP Pulse Ox 98.2 F 60 20 118/76 97 05/10/17 06:00 05/10/17 10:00 05/10/17 06:00 05/10/17 06:00 05/10/17 06:00 - Labs Labs: PT 11.3 Seconds (9.9-11.8) 05/08/17 18:00 INR 1.05 (0.93-1.08) 05/08/17 18:00 APTT 26.8 Seconds (23.7-30.8) 05/08/17 18:00 Attending/Attestation - Attestation I have personally seen and examined this patient.: Yes I have fully participated in the care of the patient.: Yes I have reviewed all pertinent clinical information, including history, physical exam and plan: Yes Notes (Text): I have seen and examined the patient at bedside. Agree with the above note with the following additions/ exceptions: Briefly this is 61 year old male with history of CAD s/p 2 stents, HTN, unspecified arhythmia, HLD, tobacco use, COPDwho presented with chest pain r/o ACS. Troponins are elevated however they are trending down. Mail Delivery Supervisor recommended another echo which is pending at this time. Upon discharge patient will follow up with Dr Ortiz and Dr Bishop. Dr Benson Stratton
--- NOTE | 2017-05-09 18:23 | CON ---
DATE: 05/09/2017 INDICATIONS: Left shoulder pain, status post recent myocardial infarction. HISTORY OF PRESENT ILLNESS: This is a 61-year-old man, who was admitted with a STEMI on 05/04 and underwent cardiac catheterization, coronary intervention by Dr. Do. An occluded circumflex was identified and 2 drug-eluting stents were placed in the circumflex artery and obtuse marginal branch. He was discharged on 05/06. He has had continuing left shoulder discomfort, which got worse and he came back to the emergency room yesterday. He was admitted to telemetry with a pleuritic discomfort in his left shoulder, which made it difficult for him to sleep and was worse when lying on his side. This was different than the original chest pain symptoms that he came in with on 05/04. There is some dyspnea on exertion but this is not severe. There was no orthopnea, PND, syncope, presyncope, lightheadedness, dizziness, vertigo, palpations, edema, or claudication. I interviewed him in the presence of his son, who acted as an creative consultant. PAST MEDICAL HISTORY: Notable for cigarette smoking. He claims to have stopped since the heart attack. There is a history of hyperlipidemia and hypertension. An echocardiogram during the last admission showed normal left ventricular function. There is no history of diabetes, stroke, TIA, or gout. MEDICATIONS: At the time of admission include aspirin, Plavix, atorvastatin, sotalol. ALLERGIES: THERE ARE NO MEDICATION ALLERGIES REPORTED. SOCIAL HISTORY: He lives at home. He does not drink alcohol significantly. FAMILY HISTORY: Noncontributory. REVIEW OF SYSTEMS: A 10-point review of systems is otherwise unremarkable except as noted above. PHYSICAL EXAMINATION: GENERAL: He is a well-developed male lying in bed, on telemetry, in no acute distress. VITAL SIGNS: Unremarkable. He is in sinus rhythm at 60 beats per minute. He is afebrile, blood pressure 107/75, respirations 17 to 20, and O2 sat 99% to 100% on nasal cannula. HEENT AND NECK: Reveals no neck vein distention, thyromegaly, or carotid bruits. Mucous membranes are moist. Conjunctivae pink. Neck is supple. LUNGS: Lung baker clear throughout. HEART: Reveals normal first and second heart sounds. ABDOMEN: Soft. Bowel sounds present. No mass, organomegaly, tenderness, rebound, or guarding. No CVA tenderness. No palpable abdominal aortic aneurysm. EXTREMITIES: Reveal no cyanosis, clubbing, or edema. NEUROLOGIC: He is awake, alert, and oriented. SKIN: Warm and dry. No rashes or cellulitis. PSYCHIATRIC: Normal as to mood and affect. LABORATORY AND IMAGING: A chest x-ray revealed stable left lower lobe atelectasis. No change noted. EKG demonstrates regular sinus rhythm, inferoposterior myocardial infarction, LVH, nonspecific ST wave changes. No change from a prior EKG. CBC IS unremarkable. PT, INR, PTT unremarkable. Electrolytes: BUN, creatinine, blood sugar unremarkable. Magnesium normal. LFTs normal. CK is normal. Troponins 5.78, repeat 5.52, repeat 4.59. BNP 523. IMPRESSION: The patient is a 61-year-old man with history of cigarette smoking, hyperlipidemia, hypertension, and recent acute inferoposterior myocardial infarction with acute intervention and stenting of the circumflex obtuse marginal system with good result. Discharged on 05/06, but returns with left shoulder discomfort which is pleuritic. He has positive troponins, which are however, trending downward from his recent acute myocardial infarction. At this time, he is admitted to telemetry. I agree with current plans. We will continue his usual medicines including aspirin, Plavix, sotalol, Lipitor, and Colace. He is getting subq heparin. He is getting morphine and tramadol for pain relief. I will order an echocardiogram to rule out development of a pericardial effusion among other things. I have discussed this case with Dr. Do. We will follow his troponin levels. We will follow along with you and make additional recommendation based on the clinical course. Hopefully, his symptoms will resolve as his myocardial infarction/ischemia improves. If symptoms continue, nuclear stress testing or repeat cardiac catheterization might be advisable. Pedro Munguia MD [facility]
--- NOTE | 2017-05-09 20:55 | CARD ---
APPROVED REPORT EKG Measurement Heart [id number] <Conclusion> Normal sinus rhythm Possible Left atrial enlargement Left axis deviation Left ventricular hypertrophy with repolarization abnormality Inferior-posterior infarct, age undetermined Abnormal ECG
[2017-05-10 00:35] VITALS: RESP 20
[2017-05-10 06:40] VITALS: BP 118/76; TEMP 98.2; O2SAT 97
--- NOTE | 2017-05-10 09:55 | CARD ---
APPROVED REPORT EXAM: LIMITED Two-dimensional and M-mode echocardiogram. INDICATION F/U ECHO R/O PERICARDIAL EFFUSION <Conclusion> Follow-up study performed. Mildly reduced LV systolic function with inferolateral hypokinesis, No significant pericardial effusion seen.
--- NOTE | 2017-05-10 11:23 | CP.PCM.DIS ---
<JoyceSawyern - Last Filed: 05/10/17 11:33> Provider - Provider Date of Admission: 05/09/17 14:49 Attending physician: Benson Stratton MD Primary care physician: Altagracia Bishop MD Time Spent in preparation of Discharge (in minutes): 45 Hospital Course - Lab Results Lab Results: Most Recent Lab Values WBC 5.9 10^3/ul (4.5-11.0) 05/09/17 05:50 RBC 5.35 10^6/uL (3.5-6.1) 05/09/17 05:50 Hgb 15.7 g/dL (14.0-18.0) 05/09/17 05:50 Hct 46.6 % (42.0-52.0) 05/09/17 05:50 MCV 87.1 fl (80.0-105.0) 05/09/17 05:50 MCH 29.3 pg (25.0-35.0) 05/09/17 05:50 MCHC 33.7 g/dl (31.0-37.0) 05/09/17 05:50 RDW 14.0 % (11.5-14.5) 05/09/17 05:50 Plt Count 153 10^3/uL (120.0-450.0) 05/09/17 05:50 MPV 10.2 fl (7.0-11.0) 05/09/17 05:50 Gran % 34.0 % (50.0-68.0) L 05/09/17 05:50 Lymph % (Auto) 44.4 % (22.0-35.0) H 05/09/17 05:50 [place] % (Auto) 13.8 % (1.0-6.0) H 05/09/17 05:50 Eos % (Auto) 7.1 % (1.5-5.0) H 05/09/17 05:50 Baso % (Auto) 0.7 % (0.0-3.0) 05/09/17 05:50 Gran # 2.02 (1.4-6.5) 05/09/17 05:50 Lymph # 2.6 (1.2-3.4) 05/09/17 05:50 [place] # 0.8 (0.1-0.6) H 05/09/17 05:50 Eos # 0.4 (0.0-0.7) 05/09/17 05:50 Baso # 0.04 K/mm3 (0.0-2.0) 05/09/17 05:50 PT 11.3 Seconds (9.9-11.8) 05/08/17 18:00 INR 1.05 (0.93-1.08) 05/08/17 18:00 APTT 26.8 Seconds (23.7-30.8) 05/08/17 18:00 Sodium 138 mmol/L (132-148) 05/09/17 05:50 Potassium 4.0 mmol/L (3.6-5.0) 05/09/17 05:50 Chloride 105 mmol/L (98-107) 05/09/17 05:50 Carbon Dioxide 26 mmol/L (21-33) 05/09/17 05:50 Anion Gap 11 (10-20) 05/09/17 05:50 BUN 17 mg/dL (7-21) 05/09/17 05:50 Creatinine 0.9 mg/dL (0.5-1.4) 05/09/17 05:50 Est GFR ( Amer) > 60 05/09/17 05:50 Est GFR (Non-Af Amer) > 60 05/09/17 05:50 Random Glucose 98 mg/dL (70-110) 05/09/17 05:50 Calcium 8.7 mg/dL (8.4-10.5) 05/09/17 05:50 Phosphorus 4.2 mg/dL (2.5-4.5) 05/09/17 05:50 Magnesium 1.9 mg/dL (1.7-2.2) 05/09/17 05:50 Total Bilirubin 0.8 mg/dL (0.2-1.3) 05/09/17 05:50 AST 35 U/L (17-59) 05/09/17 05:50 ALT 47 U/L (7-56) 05/09/17 05:50 Alkaline Phosphatase 67 U/L (38-126) 05/09/17 05:50 Lactate Dehydrogenase 891 U/L (333-699) H 05/09/17 05:50 Total Creatine Kinase 167 U/L (35-230) 05/09/17 05:50 Troponin I 2.61 ng/mL H* D 05/10/17 07:00 NT-Pro-B Natriuret Pep 523 pg/mL (0-450) H 05/08/17 17:21 Total Protein 6.6 g/dL (5.8-8.3) 05/09/17 05:50 Albumin 3.7 g/dL (3.0-4.8) 05/09/17 05:50 Globulin 2.8 gm/dL 05/09/17 05:50 Albumin/Globulin Ratio 1.3 (1.1-1.8) 05/09/17 05:50 - Hospital Course Hospital Course: Patient is a 61 yr old male with a past medical history of CAD s/p 2 stents, HTN , Atrial fibrillation, HLD, unspecified lung disorder secondary to tobacco use who complains of left shoulder pain and shortness of breath since discharge on 05.06. Patient was recently [place] [facility] [place] acute LCx and obtuse marginal branch of LCx. Patient reports that after leaving the hospital on Sunday 05/06 he has been having left shoulder pain worsened with deep inspiration and alleviated if he holds his breath. He reported the pain is dull in quality and denies any radiation to his chest or down his left arm/up to his jaw. On 05/09 Tropinin and lactate dehydrogenase trending down. Per nurse, pt does not take his Sotolol, but is compliant with meds that he gets that are not available in the [place]. Cardiology was consulted Dr. Do and and Echo was ordered. On 05/10 patient was cleared by Cardiology to go home and to follow up as an outpatient. Advised patient to follow up with Cardiology and PMD within one week of discharge. Discharge Exam - Head Exam Head Exam: ATRAUMATIC, NORMAL INSPECTION, NORMOCEPHALIC - Eye Exam Eye Exam: EOMI, Normal appearance, PERRL Pupil Exam: NORMAL ACCOMODATION, PERRL - ENT Exam ENT Exam: Mucous Membranes Moist - Respiratory Exam Respiratory Exam: Clear to PA & Lateral, NORMAL BREATHING PATTERN. absent: Accessory Muscle Use, Chest Wall Tenderness, Wheezes - Cardiovascular Exam Cardiovascular Exam: REGULAR RHYTHM, RRR, +S1, +S2. absent: Rubs - GI/Abdominal Exam GI & Abdominal Exam: Normal Bowel Sounds - Extremities Exam Extremities exam: full ROM - Back Exam Back exam: NORMAL INSPECTION. absent: paraspinal tenderness - Neurological Exam Neurological exam: Alert, CN II-XII Intact, Normal Gait, Oriented x3 - Psychiatric Exam Psychiatric exam: Normal Affect, Normal Mood - Skin Skin Exam: Dry, Intact Discharge Plan - Follow Up Plan Condition: GOOD Disposition: HOME/ ROUTINE Instructions: Chest Pain (DC) Additional Instructions: Patient is to follow up with PMD within one week. Patient is to follow up with House [facility]er Supervisor within one week. Patient should return to E.D. for any new or worsening symptoms. Referrals: Altagracia Bishop MD [Primary Care Provider] - <Tammy RINCON,[facility] - Last Filed: 05/12/17 14:19> Provider - Provider Date of Admission: 05/09/17 14:49 Attending physician: Benson Stratton MD Primary care physician: Altagracia Bishop MD Hospital Course - Lab Results Lab Results: Most Recent Lab Values WBC 5.9 10^3/ul (4.5-11.0) 05/09/17 05:50 RBC 5.35 10^6/uL (3.5-6.1) 05/09/17 05:50 Hgb 15.7 g/dL (14.0-18.0) 05/09/17 05:50 Hct 46.6 % (42.0-52.0) 05/09/17 05:50 MCV 87.1 fl (80.0-105.0) 05/09/17 05:50 MCH 29.3 pg (25.0-35.0) 05/09/17 05:50 MCHC 33.7 g/dl (31.0-37.0) 05/09/17 05:50 RDW 14.0 % (11.5-14.5) 05/09/17 05:50 Plt Count 153 10^3/uL (120.0-450.0) 05/09/17 05:50 MPV 10.2 fl (7.0-11.0) 05/09/17 05:50 Gran % 34.0 % (50.0-68.0) L 05/09/17 05:50 Lymph % (Auto) 44.4 % (22.0-35.0) H 05/09/17 05:50 [place] % (Auto) 13.8 % (1.0-6.0) H 05/09/17 05:50 Eos % (Auto) 7.1 % (1.5-5.0) H 05/09/17 05:50 Baso % (Auto) 0.7 % (0.0-3.0) 05/09/17 05:50 Gran # 2.02 (1.4-6.5) 05/09/17 05:50 Lymph # 2.6 (1.2-3.4) 05/09/17 05:50 [place] # 0.8 (0.1-0.6) H 05/09/17 05:50 Eos # 0.4 (0.0-0.7) 05/09/17 05:50 Baso # 0.04 K/mm3 (0.0-2.0) 05/09/17 05:50 PT 11.3 Seconds (9.9-11.8) 05/08/17 18:00 INR 1.05 (0.93-1.08) 05/08/17 18:00 APTT 26.8 Seconds (23.7-30.8) 05/08/17 18:00 Sodium 138 mmol/L (132-148) 05/09/17 05:50 Potassium 4.0 mmol/L (3.6-5.0) 05/09/17 05:50 Chloride 105 mmol/L (98-107) 05/09/17 05:50 Carbon Dioxide 26 mmol/L (21-33) 05/09/17 05:50 Anion Gap 11 (10-20) 05/09/17 05:50 BUN 17 mg/dL (7-21) 05/09/17 05:50 Creatinine 0.9 mg/dL (0.5-1.4) 05/09/17 05:50 Est GFR ( Amer) > 60 05/09/17 05:50 Est GFR (Non-Af Amer) > 60 05/09/17 05:50 Random Glucose 98 mg/dL (70-110) 05/09/17 05:50 Calcium 8.7 mg/dL (8.4-10.5) 05/09/17 05:50 Phosphorus 4.2 mg/dL (2.5-4.5) 05/09/17 05:50 Magnesium 1.9 mg/dL (1.7-2.2) 05/09/17 05:50 Total Bilirubin 0.8 mg/dL (0.2-1.3) 05/09/17 05:50 AST 35 U/L (17-59) 05/09/17 05:50 ALT 47 U/L (7-56) 05/09/17 05:50 Alkaline Phosphatase 67 U/L (38-126) 05/09/17 05:50 Lactate Dehydrogenase 891 U/L (333-699) H 05/09/17 05:50 Total Creatine Kinase 167 U/L (35-230) 05/09/17 05:50 Troponin I 2.61 ng/mL H* D 05/10/17 07:00 NT-Pro-B Natriuret Pep 523 pg/mL (0-450) H 05/08/17 17:21 Total Protein 6.6 g/dL (5.8-8.3) 05/09/17 05:50 Albumin 3.7 g/dL (3.0-4.8) 05/09/17 05:50 Globulin 2.8 gm/dL 05/09/17 05:50 Albumin/Globulin Ratio 1.3 (1.1-1.8) 05/09/17 05:50 Attending/Attestation - Attestation I have personally seen and examined this patient.: Yes I have fully participated in the care of the patient.: Yes I have reviewed all pertinent clinical information, including history, physical exam and plan: Yes Notes (Text): 05/12/17 14:15 Patient was seen and examined with medical doctor md/medical director. Agreed with resident assessment and plan. Patient is feeling better, he is pain free.Patient is ambulatory.He was evaluated by cardiology Dr.Hefernan Gonzalez and was cleared for discharge. The issue of compliance with medication was discussed in detail . Patient will be discharged home on ASA/Plavix/Lipitor and beta [place].He will follow up with PCP and cardiology. Management plan was discussed in detail with patient Education was provided. 05/12/17 14:18
[2017-05-10 12:25] VITALS: PULSE 60
--- NOTE | 2017-05-10 17:17 | PN ---
DATE: 05/10/2017 SUBJECTIVE: The patient is seen lying in bed on telemetry in the presence of his daughter. He is comfortable at the present time. He continues to have some left shoulder pain with deep inspiration. CURRENT MEDICATIONS: Remain sotalol at 40 mg daily; DuoNeb inhaler, Ecotrin, subcutaneous heparin, Lipitor 40 mg daily, Pepcid 20 mg b.i.d., Plavix 75 mg daily and Ultram. OBJECTIVE: GENERAL: He is a middle-aged man, who appears comfortable at the present time. VITAL SIGNS: His blood pressure is 118/76 with a pulse of 60 in sinus, respirations are 14, he is afebrile. HEENT: No JVD. CHEST: Few scattered rhonchi. HEART: PMI in normal position. No pathological gallops noted. ABDOMEN: Soft and nontender with bowel sounds. EXTREMITIES: No edema. DIAGNOSTIC DATA: Troponin is 2.61 which is improved from 4.59 of yesterday. IMPRESSION: 1. Shoulder pain appears more likely pleuritic in nature. I doubt any significant cardiac ischemia. Echocardiogram was performed, which was basically unchanged. evidence of mild to moderate inferolateral hypokinesis. There is no evidence of pericardial effusion. 2. Coronary artery disease, status post recent inferior-posterior wall myocardial infarction, treated with emergency percutaneous coronary intervention. 3. History of tobacco abuse. 4. History of hypertension and hyperlipidemia. RECOMMENDATIONS: From a cardiac standpoint, he appears stable to be discharged home at this time. Analgesic therapy for his shoulder pain can continue. The rest of his cardiac medicines will continue, unchanged. Carlos Do MD
[2017-05-11] MEDS ORDERED: [UNRECOGNIZED DRUG - OTHER] PO SCH (10:00)
--- NOTE | 2017-05-12 13:50 | CARD ---
APPROVED REPORT EKG Measurement Heart [id number] <Conclusion> Sinus bradycardia Left axis deviation Inferior-posterior infarct, age undetermined Abnormal ECG
== END 2017-05-10 12:23 | disposition home or self-care (01) | DRG 121 ==
LOC: ED 16:54 → ERH 18:41 → 2RNO 22:42 → OBSVTOIN 05-09 14:49
PROVIDERS: ADMIT Internal Medicine; ATTEND Hospitalist
DX: I25.10 Atherosclerotic heart disease of native coronary artery without angina pectoris (principal); I21.3 ST elevation (STEMI) myocardial infarction of unspecified site; I48.91 Unspecified atrial fibrillation; I10 Essential (primary) hypertension; J44.9 Chronic obstructive pulmonary disease, unspecified; E78.5 Hyperlipidemia, unspecified; F17.210 Nicotine dependence, cigarettes, uncomplicated; Z87.442 Personal history of urinary calculi; Z95.5 Presence of coronary angioplasty implant and graft; R40.2412 Glasgow coma scale score 13-15, at arrival to emergency department; M25.512 Pain in left shoulder

== ENCOUNTER 2017-05-27 06:44 | Emergency (ER) | payer MEDICAID ==
[2017-05-27 06:46] VITALS: BMI 27.2
[2017-05-27 07:02] VITALS: BP 126/64; PULSE 68; RESP 18; TEMP 97.9; O2SAT 99
[2017-05-27] MEDS ORDERED: Oxycodone/Acetaminophen 5/325 mg Tab PO STA (08:05)
--- NOTE | 2017-05-27 08:22 | ED PDOC ---
Arrival/HPI - General Chief Complaint: Finger,Hand,&Wrist Time Seen by Provider: 05/27/17 07:33 Historian: Patient - History of Present Illness Narrative History of Present Illness (Text): 05/27/17 08:00 A 61 year old male smoker, whose past medical history includes PR, cardiac catheter with two stents, previously on Plavix, but developed an allergic reaction, currently on Brilinta, presents to the emergency department for bilateral middle finger pain, which began yesterday. The patient denies any trauma, numbness, or tingling, headaches, cough, shortness of breath, abdominal pain, or any other complaints at this time. The patient denies any pain or discomfort to any of his other 8 fingers. Time/Duration: 24 hours Symptom Onset: Sudden Symptom Course: Unchanged Activities at Onset: Light Context: Home Associated Symptoms (Text): 05/27/17 08:39 Recent cardiac catheterization with 2 stents. Patient was on Plavix but developed an allergic reaction which included a rash and was switched to brilinta. Complains of pain in the bilateral middle finger proximal phalanx since yesterday. The son translates. Son reports that the patient feels like he is not getting circulation into those fingers. The other 8 fingers are unaffected, as are the hand and wrist elbow and shoulder. No known injury or trauma. No numbness. He has good capillary refill on all digits. Past Medical History - Provider Review Nursing Documentation Reviewed: Yes - Infectious Disease Hx of Infectious Diseases: None - Cardiac Hx Cardiac Disorders: Yes Hx Cardiac Arrhythmia: Yes Hx Hypertension: Yes Other/Comment: STEMI - Pulmonary Hx Respiratory Disorders: No - Neurological Hx Neurological Disorder: No - HEENT Hx HEENT Disorder: No - Renal Hx Renal Disorder: Yes Hx Kidney Stones: Yes - Endocrine/Metabolic Hx Endocrine Disorders: No - Hematological/Oncological Hx Blood Disorders: No - Integumentary Hx Dermatological Disorder: No - Musculoskeletal/Rheumatological Hx Musculoskeletal Disorders: No Hx Falls: No - Gastrointestinal Hx Gastrointestinal Disorders: No - Genitourinary/Gynecological Hx Genitourinary Disorders: No - Psychiatric Hx Psychophysiologic Disorder: No Hx Substance Use: No - Surgical History Hx Cardiac Catheterization: Yes Other/Comment: Stent placement - Anesthesia Hx Anesthesia: No Family/Social History - Physician Review Nursing Documentation Reviewed: Yes Family/Social History: No Known Family HX Smoking Status: Heavy Smoker > 10 Cigarettes Daily Hx Alcohol Use: No Hx Substance Use: No Allergies/Home Meds Allergies/Adverse Reactions: Allergies clopidogrel [From Plavix] Allergy (Verified 05/27/17 07:23) RASH Home Medications: Home Meds Medication Instructions Recorded Confirmed Aspirin [Aspirin Chewable] 81 mg PO DAILY 05/27/17 05/27/17 Atorvastatin [Lipitor] 40 mg PO DAILY 05/27/17 05/27/17 Betacore 40 mg PO DAILY 05/27/17 05/27/17 Ticagrelor [Brilinta] 90 mg PO BID 05/27/17 05/27/17 Review of Systems - Physician Review All systems were reviewed & negative as marked: Yes - Review of Systems Respiratory: absent: SOB Cardiovascular: absent: Chest Pain Gastrointestinal: absent: Abdominal Pain Musculoskeletal: Other (bilateral middle finger pain) Physical Exam Vital Signs Reviewed: Yes Vital Signs Temp Pulse Resp BP Pulse Ox 05/27/17 06:58 97.9 F 68 18 126/64 99 Temperature: Afebrile Blood Pressure: Normal Pulse: Regular Respiratory Rate: Normal Appearance: Positive for: Well-Appearing, Non-Toxic, Uncomfortable Pain Distress: None Mental Status: Positive for: other (Awake and alert) - Systems Exam Head: Present: Atraumatic, Normocephalic Pupils: Present: PERRL Extroacular Muscles: Present: EOMI Conjunctiva: Present: Normal Mouth: Present: Moist Mucous Membranes Neck: Present: Normal Range of Motion Respiratory/Chest: Present: Clear to Auscultation, Good Air Exchange. No: Respiratory Distress, Accessory Muscle Use Cardiovascular: Present: Regular Rate and Rhythm, Normal S1, S2. No: Murmurs Abdomen: Present: Normal Bowel Sounds. No: Tenderness, Distention, Peritoneal Signs Upper Extremity: Present: Normal Inspection, Normal ROM, NORMAL PULSES, Tenderness, Neurovascularly Intact, Capillary Refill < 2s, Other (right and left proximal phalanx tenderness to palpation; painful, but full, range of motion; good capillary refill; no tenosynovitis swelling, skin changes). No: Cyanosis, Edema, Swelling, Erythema, Deformity Lower Extremity: Present: Normal Inspection. No: Edema Neurological: Present: GCS=15, CN II-XII Intact, Speech Normal Skin: Present: Warm, Dry, Normal Color. No: Rashes Psychiatric: Present: Alert, Oriented x 3, Normal Insight, Normal Concentration Medical Decision Making ED Course and Treatment: 05/27/17 08:26 Impression: A 61 year old male with bilateral middle finger pain. Differential Diagnosis included but are not limited to: Plan: -- oxyCODONE/ Acetaminophen, Ultram -- Radiology: Hand Left, Hand Right -- Reassess and disposition Progress Notes: - Critical Care Narrative Critical Care (Text): 05/27/17 08:43 Patient did not want Ultram, as he has taken it before and it has not helped him. Percocet was ordered. - RAD Interpretation Radiology Orders: 05/27/17 07:47 HAND LEFT 3 VIEWS ROUTINE [RAD] Stat HAND RIGHT 3 VIEWS [RAD] Stat Bilateral hand show no fracture dislocation foreign body or osteoarthritis Pattern Developer: ED Physician - Medication Orders Current Medication Orders: Discontinued Medications Oxycodone/Acetaminophen (Percocet 5/325 Mg Tab) 1 tab PO STAT STA Stop: 05/27/17 08:06 Last Admin: 05/27/17 08:19 Dose: 1 tab [facility] Pain Assessment Document 05/27/17 08:19 [facility] (Rec: 05/27/17 08:20 [facility] [id number]) Pain Reassessment Is this a pain reassessment? No Sleep Is patient sleeping during reassessment? No Presence of Pain Presence of Pain Yes Pain Scale Used Pain Scale Used Numeric Location Left, Right or Bilateral Bilateral Upper or Lower Upper Pain Location Body Site Hand Tramadol HCl (Ultram) 50 mg PO STAT STA Stop: 05/27/17 07:48 Last Admin: 05/27/17 08:20 Dose: Not Given Non-Admin Reason: Patient Refused - Scribe Statement The provider has reviewed the documentation as recorded by the Jorge Rucker Provider Scribe Attestation: All medical record entries made by the Scribe were at my direction and personally dictated by me. I have reviewed the chart and agree that the record accurately reflects my personal performance of the history, physical exam, medical decision making, and the department course for this patient. I have also personally directed, reviewed, and agree with the discharge instructions and disposition. Disposition/Present on Arrival - Present on Arrival Any Indicators Present on Arrival: No History of DVT/PE: No History of Uncontrolled Diabetes: No Urinary Catheter: No History of Decub. Ulcer: No History Surgical Site Infection Following: None - Disposition Have Diagnosis and Disposition been Completed?: Yes Diagnosis: Finger pain, left, Finger pain, right Disposition: HOME/ ROUTINE Disposition Time: 08:44 Patient Plan: Discharge Condition: GOOD Discharge Instructions (ExitCare): Finger Sprain (ED) Additional Instructions: Rest ice and elevation. Follow-up with PMD. Follow up in ER as needed. Prescriptions: oxyCODONE/Acetaminophen [Percocet 5/325 mg Tab] 1 ea PO Q6 #10 tab Forms: [employer] ([place])
--- NOTE | 2017-05-27 08:54 | RAD ---
PROCEDURE: Right Hand Radiographs. HISTORY: pain COMPARISON: None. FINDINGS: BONES: Normal. No fracture. JOINTS: Osteoarthritis at [facility] 1 with extensive productive bony change about affected joint. Remaining joint spaces and articular surfaces appear preserved. SOFT TISSUES: Normal. OTHER FINDINGS: None. IMPRESSION: Osteoarthritis at [facility] 1.
--- NOTE | 2017-05-27 08:55 | RAD ---
PROCEDURE: Left Hand Radiographs. HISTORY: pain COMPARISON: None. FINDINGS: BONES: Normal. No fracture. JOINTS: Mild osteoarthritis at [facility] 1. Remaining joint spaces and articular surfaces appear preserved. No articular erosions. SOFT TISSUES: Normal. OTHER FINDINGS: None. IMPRESSION: Mild osteoarthritis at [facility] 1.
== END 2017-05-27 09:15 | disposition home or self-care (01) ==
LOC: ED 06:44
DX: M79.645 Pain in left finger(s) (principal); M79.644 Pain in right finger(s)